=== PATIENT | female | born 1960 | race Hispanic/Latino ===

== ENCOUNTER 2017-04-01 15:08 | Emergency (ER) | payer MEDICARE ==
[2017-04-01 15:14] VITALS: BP 116/62; RESP 18; TEMP 97.9; O2SAT 99
[2017-04-01] MEDS ORDERED: Albuterol 0.083% Inhal Sol (2.5 mg/3 mL) UD INH STA (15:52)
--- NOTE | 2017-04-01 15:57 | ED PDOC ---
HPI: General Adult Time Seen by Provider: 04/01/17 15:19 Chief Complaint (Nursing): Cough, Cold, Congestion History Per: Patient Additional Complaint(s): Pt. states for the past 2 weeks she's had wheezing and cough productive of yellow sputum. States she's also been using her albuterol neb with good relief of wheezing but cough persists. Denies chest pain, hemoptysis, fever, sick contacts, recent travel. Also reports having nasal congestion. Past Medical History Reviewed: Historical Data, Nursing Documentation, Vital Signs Vital Signs: Last Vital Signs Temp 97.9 F 04/01/17 15:12 Pulse 111 H 04/01/17 15:12 Resp 18 04/01/17 15:12 BP 116/62 04/01/17 15:12 Pulse Ox 99 04/01/17 15:57 - Medical History PMH: Anxiety, Arthritis, Asthma, Back Problems, COPD, Emphysema, HTN, Hypercholesterolemia, Migraine Denies: HIV, Chronic Kidney Disease - Surgical History Surgical History: - Family History Family History: States: No Known Family Hx - Home Medications Home Medications: Ambulatory Orders Medication Instructions Recorded Metoclopramide HCl [Reglan] 10 mg PO TID PRN #12 tablet 01/12/16 Albuterol Sulfate [Proair Hfa] 1 puff INH PRN PRN 02/01/16 Benazepril HCl [Lotensin] 20 mg PO DAILY 02/01/16 Cyclobenzaprine [Flexeril] 10 mg PO BID 02/01/16 Ezetimibe [Zetia] 10 mg PO DAILY 02/01/16 Fluticasone Nasal [Flonase] 2 inh NA PRN PRN 02/01/16 Fluticasone/Salmeterol 250/50 2 puff INH PRN PRN 02/01/16 [Advair Diskus 250/50] Ibuprofen [Motrin Tab] 600 mg PO Q6 PRN 02/01/16 Levofloxacin [Levaquin] 500 mg PO DAILY #0 tablet 02/01/16 Methylprednisolone [Medrol Dose 4 mg PO DAILY #21 mg 02/01/16 Pack (21 tabs)] Ehfcr-6-Tutk Ethyl Esters [OMEGA 3] 500 mg PO DAILY 02/01/16 Omeprazole 20 mg PO DAILY 02/01/16 Promethazine HCl/Codeine 5 ml PO QID PRN 02/01/16 [Prometh-Codein 6.25-10 mg/5 ml] Simvastatin 20 mg PO DAILY 02/01/16 Zolpidem Tartrate [Ambien] 10 mg PO HS 02/01/16 amLODIPine [Norvasc] 10 mg PO DAILY 02/01/16 Albuterol HFA [Ventolin HFA 90 2 puff IH Q6 #200 puff 02/07/16 mcg/actuation (8 g)] predniSONE [predniSONE Tab] 20 mg PO BID #8 tab 02/07/16 Naproxen [Naprosyn] 500 mg PO BID PRN #15 tablet 03/01/16 Penicillin VK [Pen-Vee K] 500 mg PO QID #28 tab 03/01/16 Ondansetron [Zofran] 4 mg PO Q8H PRN #6 tab 05/01/16 Azithromycin [Zithromax] 250 mg PO DAILY #6 tab 04/01/17 Methylprednisolone [Medrol Dose 4 mg PO DAILY #21 mg 04/01/17 Pack (21 tabs)] - Allergies Allergies/Adverse Reactions: Allergies Allergy/AdvReac Type Severity Reaction Status Date / Time Sulfa (Sulfonamide Allergy RASH Verified 05/01/16 06:00 Antibiotics) Review of Systems ROS Statement: Except As Marked, All Systems Reviewed And Found Negative Respiratory: Positive for: Cough, Wheezing Physical Exam - Reviewed Nursing Documentation Reviewed: Yes Vital Signs Reviewed: Yes - Physical Exam Appears: Positive for: Well, Non-toxic, No Acute Distress Head Exam: Positive for: ATRAUMATIC, NORMAL INSPECTION, NORMOCEPHALIC Skin: Positive for: Normal Color, Warm. Negative for: Rash Eye Exam: Positive for: EOMI, Normal appearance, PERRL ENT: Positive for: Normal ENT Inspection Neck: Positive for: Normal, Painless ROM Cardiovascular/Chest: Positive for: Tachycardia. Negative for: Irregularly Irregular Respiratory: Positive for: Wheezing (b/l expiratory wheezing). Negative for: Respiratory Distress Gastrointestinal/Abdominal: Positive for: Normal Exam, Bowel Sounds, Soft. Negative for: Tenderness Back: Positive for: Normal Inspection Extremity: Positive for: Normal ROM Neurologic/Psych: Positive for: Alert, Oriented - ECG ECG: Positive for: Interpreted By Me ECG Rhythm: Positive for: Sinus Rhythm. Negative for: ST/T Changes Rate: 80 O2 Sat by Pulse Oximetry: 99 - Radiology X-Ray: Interpreted by Me (CXR) X-Ray Interpretation: No Acute Disease - Progress Re-evaluation Time: 17:02 (Lungs clear b/l. Reports complete relief of SOB. ) Condition: Improved Disposition - Clinical Impression Clinical Impression: Asthmatic bronchitis - Patient ED Disposition Is Patient to be Admitted: No - Disposition Referrals: [facility] [Outside] [facility] [Outside] Disposition: Routine/Home Disposition Time: 17:03 Condition: IMPROVED Prescriptions: Azithromycin [Zithromax] 250 mg PO DAILY #6 tab Methylprednisolone [Medrol Dose Pack (21 tabs)] 4 mg PO DAILY #21 mg Instructions: Acute Bronchitis (ED) Forms: [employer] (Chinese) Print Language: CZECH
[2017-04-01] MEDS ORDERED: Albuterol 0.083% Inhal Sol (2.5 mg/3 mL) UD ONE (16:16)
[2017-04-01 17:04] VITALS: PULSE 80
--- NOTE | 2017-04-01 17:15 | RAD ---
HISTORY: cough COMPARISON: Chest radiographs 05/01/2016. TECHNIQUE: Chest PA and lateral FINDINGS: LUNGS: No active pulmonary disease. PLEURA: No significant pleural effusion identified. No pneumothorax apparent. CARDIOVASCULAR: Normal. OSSEOUS STRUCTURES: No significant abnormalities. VISUALIZED UPPER ABDOMEN: Normal. OTHER FINDINGS: None. IMPRESSION: No interval acute cardiopulmonary disease appreciated.
--- NOTE | 2017-04-03 12:08 | CARD ---
APPROVED REPORT EKG Measurement Heart [id number] <Conclusion> Normal sinus rhythm Normal ECG
== END 2017-04-01 17:17 | disposition home or self-care (01) ==
LOC: H.ER 15:08
DX: J40 Bronchitis, not specified as acute or chronic (principal); E78.00 Pure hypercholesterolemia, unspecified; F41.9 Anxiety disorder, unspecified; I10 Essential (primary) hypertension; J44.9 Chronic obstructive pulmonary disease, unspecified

== ENCOUNTER 2017-06-27 19:08 | Emergency (ER) | payer MEDICARE ==
[2017-06-27 20:18] VITALS: BP 143/76; PULSE 81; RESP 18; TEMP 97.8; O2SAT 100
--- NOTE | 2017-06-27 23:40 | ED PDOC ---
HPI: General Adult Time Seen by Provider: 06/27/17 21:31 Chief Complaint (Nursing): Upper Extremity Problem/Injury History Per: Patient Additional Complaint(s): Pt. states earlier today she became dizzy which she describes as the room spinning. States symptoms have been occurring intermittently for 2 months and worsened over the past week. States today she was walking then she became dizzy and fell down injuring her R wrist/hand and the R lower back area. Further states that she did not injure her head nor did she lose consciousness. Denies neck pain, chest pain, abdominal pain, LOC, N/V, numbness, tingling. Past Medical History Reviewed: Historical Data, Nursing Documentation, Vital Signs Vital Signs: Last Vital Signs Temp 97.8 F 06/27/17 20:14 Pulse 81 06/27/17 20:14 Resp 18 06/27/17 20:14 BP 143/76 06/27/17 20:14 Pulse Ox 100 06/27/17 23:50 - Medical History PMH: Anxiety, Arthritis, Asthma, Back Problems, COPD, Emphysema, HTN, Hypercholesterolemia, Migraine Denies: HIV, Chronic Kidney Disease - Surgical History Surgical History: - Family History Family History: States: No Known Family Hx - Home Medications Home Medications: Ambulatory Orders Medication Instructions Recorded Metoclopramide HCl [Reglan] 10 mg PO TID PRN #12 tablet 01/12/16 Albuterol Sulfate [Proair Hfa] 1 puff INH PRN PRN 02/01/16 Benazepril HCl [Lotensin] 20 mg PO DAILY 02/01/16 Cyclobenzaprine [Flexeril] 10 mg PO BID 02/01/16 Ezetimibe [Zetia] 10 mg PO DAILY 02/01/16 Fluticasone Nasal [Flonase] 2 inh NA PRN PRN 02/01/16 Fluticasone/Salmeterol 250/50 2 puff INH PRN PRN 02/01/16 [Advair Diskus 250/50] Ibuprofen [Motrin Tab] 600 mg PO Q6 PRN 02/01/16 Levofloxacin [Levaquin] 500 mg PO DAILY #0 tablet 02/01/16 Methylprednisolone [Medrol Dose 4 mg PO DAILY #21 mg 02/01/16 Pack (21 tabs)] Rvqey-9-Qbmh Ethyl Esters [OMEGA 3] 500 mg PO DAILY 02/01/16 Omeprazole 20 mg PO DAILY 02/01/16 Promethazine HCl/Codeine 5 ml PO QID PRN 02/01/16 [Prometh-Codein 6.25-10 mg/5 ml] Simvastatin 20 mg PO DAILY 02/01/16 Zolpidem Tartrate [Ambien] 10 mg PO HS 02/01/16 amLODIPine [Norvasc] 10 mg PO DAILY 02/01/16 Albuterol HFA [Ventolin HFA 90 2 puff IH Q6 #200 puff 02/07/16 mcg/actuation (8 g)] predniSONE [predniSONE Tab] 20 mg PO BID #8 tab 02/07/16 Naproxen [Naprosyn] 500 mg PO BID PRN #15 tablet 03/01/16 Penicillin VK [Pen-Vee K] 500 mg PO QID #28 tab 03/01/16 Ondansetron [Zofran] 4 mg PO Q8H PRN #6 tab 05/01/16 Azithromycin [Zithromax] 250 mg PO DAILY #6 tab 04/01/17 Methylprednisolone [Medrol Dose 4 mg PO DAILY #21 mg 04/01/17 Pack (21 tabs)] Promethazine DM [Phenergan DM 5 - 10 ml PO Q8 PRN #120 ml 04/01/17 Syrup] - Allergies Allergies/Adverse Reactions: Allergies Allergy/AdvReac Type Severity Reaction Status Date / Time Sulfa (Sulfonamide Allergy RASH Verified 06/27/17 20:14 Antibiotics) Review of Systems ROS Statement: Except As Marked, All Systems Reviewed And Found Negative Musculoskeletal: Positive for: Back Pain, Hand Pain Physical Exam - Physical Exam Appears: Positive for: Well, Non-toxic, No Acute Distress Head Exam: Positive for: ATRAUMATIC, NORMAL INSPECTION, NORMOCEPHALIC Skin: Positive for: Normal Color, Warm. Negative for: Rash Eye Exam: Positive for: Normal appearance, EOMI. Negative for: Nystagmus ENT: Positive for: Normal ENT Inspection Neck: Positive for: Normal, Painless ROM Cardiovascular/Chest: Positive for: Regular Rate, Rhythm, Chest Non Tender Respiratory: Positive for: Normal Breath Sounds. Negative for: Respiratory Distress Gastrointestinal/Abdominal: Positive for: Normal Exam, Soft, Tenderness (RLQ tenderness ) Back: Negative for: Normal Inspection (R lower flank area with large ecchymotic area with moderate tenderness and no break in skin integrity), L CVA Tenderness, R CVA Tenderness, Vertebral Tenderness Extremity: Positive for: Other (R dorsal hand and R dorsal wrist tenderness without swelling or deformity) Neurologic/Psych: Positive for: Alert, Oriented. Negative for: Aphasia, Facial Droop - Laboratory Results Result Diagrams: 06/27/17 23:38 06/27/17 23:38 - ECG O2 Sat by Pulse Oximetry: 100 - Radiology X-Ray: Interpreted by Me (R hand/wrist x-ray) X-Ray Interpretation: No Acute Disease - Progress ED Course And Treament: Labs ordered. CT abd/pelvis w/ IV contrast, R wrist/hand x-rays ordered. Dilaudid 0.5mg IV, zofran 4mg IV ordered. Pt. kept NPO. Disposition - Clinical Impression Clinical Impression: Dizziness, Wrist sprain, Back contusion - Patient ED Disposition Is Patient to be Admitted: Transfer of Care (Signed out to Raza RAMOS pending CT results and final disposition.) - Disposition Disposition: Routine/Home Disposition Time: 01:15 Condition: STABLE Forms: [employer] (Romanian)
[2017-06-27 23:42] LABS: BASO # 0.1 K/uL (0.0-0.2); BASO % 0.8 % (0.0-2.0); EOS # 0.4 K/uL (0.0-0.7); EOS % 4.3 % (0.0-4.0); HEMOGLOBIN 12.4 g/dL (12.0-16.0); LYMPH # 3.3 K/uL (1.0-4.3); LYMPH % 34.5 % (20.0-40.0); MEAN CELL VOLUME 96.8 fl (81.0-99.0); MEAN CORPUSCULAR HEMOGLOBIN 31.6 pg (27.0-31.0); MEAN CORPUSCULAR HGB CONC 32.6 g/dL (33.0-37.0); MEAN PLATELET VOLUME 9.7 fl (7.2-11.7); MONO # 0.8 K/uL (0.0-0.8); MONO % 8.1 % (0.0-10.0); NEUT % 52.3 % (50.0-75.0); RBC 3.91 Mil/uL (3.80-5.20); RED CELL DISTRIBUTION WIDTH 14.7 % (11.5-14.5); WHITE BLOOD COUNT 9.6 K/uL (4.8-10.8)
[2017-06-27 23:53] LABS: ALB/GLOB RATIO 1.2 (1.0-2.1); ALBUMIN 4.5 g/dL (3.5-5.0); ALT/SGPT 35 U/L (9-52); AST/SGOT 32 U/L (14-36); BLOOD UREA NITROGEN 12 mg/dl (7-17); CALCIUM 9.5 mg/dL (8.4-10.2); GFR AFRICAN-AMERICAN > 60; GFR NON-AFRICAN AMERICAN 51
[2017-06-28 00:30] LABS: PARTIAL THROMBOPLASTIN TIME 30.1 Seconds (25.6-37.1); PROTHROMBIN TIME 10.9 Seconds (9.8-13.1)
[2017-06-28] MEDS ORDERED: Sodium Chloride 0.9% 50 ML IV ONE (00:48)
[2017-06-28] MEDS ORDERED: Iohexol 300 100 ML IJ ONE (00:48)
--- NOTE | 2017-06-28 02:14 | CT ---
EXAM: CT Abdomen and Pelvis With Intravenous Contrast EXAM DATE/TIME: 06/27/2017 10:03 PM CLINICAL HISTORY: 56 years old, female; Injury or trauma; Fall; Initial encounter; Blunt; Generalized; Prior surgery; Surgery date: 6+ months; Surgery type: ; Additional info: Trauma. Back pain TECHNIQUE: Axial computed tomography images of the abdomen and pelvis with intravenous contrast. All CT scans at this facility use one or more dose reduction techniques, viz.: automated exposure control; ma/kV adjustment per patient size (including targeted exams where dose is matched to indication; i.e. head); or iterative reconstruction technique. Coronal and sagittal reformatted images were created and reviewed. CONTRAST: 90 mL of [id number] administered intravenously. COMPARISON: No relevant prior studies available. FINDINGS: There are no abnormal areas of decreased attenuation in the liver, spleen, pancreas or kidneys to suggest organ injury. No free fluid. No evidence of bowel injury.No free air. A normal appendix is identified coronal images 66 through 76. No fractures. Chronic appearing deformity of the L1 superior endplate with adjacent well corticated fragment. The uterus and ovaries appear normal. IMPRESSION: No acute findings.
--- NOTE | 2017-06-28 02:20 | CT ---
EXAM: CT Head Without Intravenous Contrast EXAM DATE/TIME: 06/27/2017 10:02 PM CLINICAL HISTORY: 56 years old, female; Injury or trauma; Fall TECHNIQUE: Axial computed tomography images of the head/brain without intravenous contrast. All CT scans at this facility use one or more dose reduction techniques, viz.: automated exposure control; ma/kV adjustment per patient size (including targeted exams where dose is matched to indication; i.e. head); or iterative reconstruction technique. COMPARISON: CT - HEAD W/O CONTRAST 2015-08-26 20:10 images did not arrive FINDINGS: Mild atrophy. No intracranial hemorrhage. No extra axial collections. No intracranial edema. No fluid in the sinuses. Trace fluid inferior right mastoid air cells. No depressed fractures. IMPRESSION: No acute intracranial injury.
--- NOTE | 2017-06-28 04:02 | ED PDOC ---
- Laboratory Results Result Diagrams: 06/27/17 23:38 06/27/17 23:38 - ECG O2 Sat by Pulse Oximetry: 100 Medical Decision Making Medical Decision Makin Patient endorsed to me from RACHEL Rae pending CT. 021 CT A/P : FINDINGS There are no abnormal areas of decreased attenuation in the liver, spleen, pancreas or kidneys to suggest organ injury. No free fluid. No evidence of bowel injury.No free air. A normal appendix is identified coronal images 66 through 76. No fractures. Chronic appearing deformity of the L1 superior endplate with adjacent well corticated fragment. The uterus and ovaries appear normal. IMPRESSION: No acute findings. CT HEAD : FINDINGS: Mild atrophy. No intracranial hemorrhage. No extra axial collections. No intracranial edema. No fluid in the sinuses. Trace fluid inferior right mastoid air cells. No depressed fractures. IMPRESSION: No acute intracranial injury. On re-evaluation, patient reports improvement of pain, denies any headache, dizziness, chest pain, SOB or abdominal pain at this time. On exam, patient remains AAOx3, in no acute distress. Discussed CT findings with patient in great detail. Pre-made thumb spica splint applied to the R wrist. Based on history, exam and diagnostic results plan will be for outpt f/u w/ Dx of fall, flank pain, right wrist pain. Advised to follow up with primary care physician in 1-2 days without fail. Return to the emergency room at any time for any new or worsening symptoms. Patient states she fully agrees with and understands discharge instructions. States that she agrees with the plan and disposition. Verbalized and repeated discharge instructions and plan. I have given the patient opportunity to ask any additional questions. Scribe Attestation: Documented by Letty Zepeda acting as a scribe for Maggie Person PA-C. Scribe Attestation: All medical record entries made by the Scribe were at my direction and personally dictated by me. I have reviewed the chart and agree that the record accurately reflects my personal performance of the history, physical exam, medical decision making, and the department course for this patient. I have also personally directed, reviewed, and agree with the discharge instructions and disposition. Disposition Counseled Patient/Family Regarding: Studies Performed, Diagnosis, Need For Followup - Clinical Impression Clinical Impression: Dizziness, Wrist sprain, Back contusion - POA Present On Arrival: None - Disposition Disposition: Routine/Home Disposition Time: 02:20 Condition: STABLE Additional Instructions: Thank you for letting us take care of you today. You were treated for dizziness , back contusion, wrist sprain. The emergency medical care you received today was directed at your acute symptoms. If you were prescribed any medication, please fill it and take as directed. It may take several days for your symptoms to resolve. Return to the Emergency Department if your symptoms worsen, do not improve, or if you have any other problems. Please contact your doctor in 2 days for re-evaluation and follow up. Bring any paperwork you were given at discharge with you along with any medications you are taking to your follow up visit. Our treatment cannot replace ongoing medical care by a primary care provider (PCP) outside of the emergency department. Thank you for allowing the [facility] team to be part of your care today. 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
--- NOTE | 2017-06-28 10:36 | RAD ---
PROCEDURE: Right Hand Radiographs. HISTORY: trauma COMPARISON: Right hand radiographs dated 03/24/2015 . FINDINGS: BONES: No acute fracture. JOINTS: Unremarkable. SOFT TISSUES: Normal. OTHER FINDINGS: None. IMPRESSION: No demonstrated fracture or dislocation
--- NOTE | 2017-06-28 10:36 | RAD ---
PROCEDURE: Right Wrist Radiographs. HISTORY: trauma COMPARISON: None. FINDINGS: BONES: No acute fracture. JOINTS: Unremarkable. SOFT TISSUES: Normal. OTHER FINDINGS: None. IMPRESSION: No demonstrated fracture or dislocation.
--- NOTE | 2017-06-28 11:31 | CARD ---
APPROVED REPORT EKG Measurement Heart [id number] <Conclusion> Normal sinus rhythm Normal ECG
== END 2017-06-28 04:30 | disposition home or self-care (01) ==
LOC: H.ER 19:08
DX: S63.91XA Sprain of unspecified part of right wrist and hand, initial encounter (principal); S30.0XXA Contusion of lower back and pelvis, initial encounter; R42 Dizziness and giddiness; E78.00 Pure hypercholesterolemia, unspecified; F41.9 Anxiety disorder, unspecified; I10 Essential (primary) hypertension; J44.9 Chronic obstructive pulmonary disease, unspecified
CPT/HCPCS: 70450; 73110; 73130; 74177; 80053; 84484; 85025; 85610; 85730; 93005; 96374; 96375; 96376; 99282; J1170; J2405; Q9967

== ENCOUNTER 2017-07-09 11:47 | Emergency (ER) | payer MEDICARE ==
[2017-07-09 11:58] VITALS: O2SAT 99
[2017-07-09] MEDS ORDERED: Albuterol-Ipratrop 3 mg / 0.5 (3 ml) UD ONE ×2 (11:59→12:43)
--- NOTE | 2017-07-09 12:06 | ED PDOC ---
HPI: CCC, URI, Sore Throat Time Seen by Provider: 07/09/17 12:03 Chief Complaint (Provider): shortness of breath History Per: Patient History/Exam Limitations: no limitations Onset/Duration Of Symptoms: Days (x2) Current Symptoms Are (Timing): Still Present Additional Complaint(s): 57 year old female with medical history of emphysema and Crohn's disease, presents to the emergency department via EMS for an evaluation of cough and shortness of breath ongoing for 2 days. Patient attempted to see PMD yesterday but was informed he was out of the office. Past Medical History Reviewed: Historical Data, Nursing Documentation, Vital Signs Vital Signs: Last Vital Signs Temp 97.9 F 07/09/17 15:09 Pulse 75 07/09/17 15:09 Resp 16 07/09/17 15:09 BP 135/80 07/09/17 15:09 Pulse Ox 99 07/09/17 15:09 - Medical History PMH: Anxiety, Arthritis, Asthma, Back Problems, COPD, Emphysema, HTN, Hypercholesterolemia, Migraine Denies: HIV, Chronic Kidney Disease - Surgical History Surgical History: Denies: No Surg Hx - Family History Family History: States: Unknown Family Hx - Social History Current smoker - smoking cessation education provided: No Ex-Smoker (has not smoked in the last 12 months): Yes Alcohol: None Drugs: Denies - Home Medications Home Medications: Ambulatory Orders Medication Instructions Recorded Metoclopramide HCl [Reglan] 10 mg PO TID PRN #12 tablet 01/12/16 Albuterol Sulfate [Proair Hfa] 1 puff INH PRN PRN 02/01/16 Benazepril HCl [Lotensin] 20 mg PO DAILY 02/01/16 Cyclobenzaprine [Flexeril] 10 mg PO BID 02/01/16 Ezetimibe [Zetia] 10 mg PO DAILY 02/01/16 Fluticasone Nasal [Flonase] 2 inh NA PRN PRN 02/01/16 Fluticasone/Salmeterol 250/50 2 puff INH PRN PRN 02/01/16 [Advair Diskus 250/50] Ibuprofen [Motrin Tab] 600 mg PO Q6 PRN 02/01/16 Levofloxacin [Levaquin] 500 mg PO DAILY #0 tablet 02/01/16 Methylprednisolone [Medrol Dose 4 mg PO DAILY #21 mg 02/01/16 Pack (21 tabs)] Xoxmd-2-Wzik Ethyl Esters [OMEGA 3] 500 mg PO DAILY 02/01/16 Omeprazole 20 mg PO DAILY 02/01/16 Promethazine HCl/Codeine 5 ml PO QID PRN 02/01/16 [Prometh-Codein 6.25-10 mg/5 ml] Simvastatin 20 mg PO DAILY 02/01/16 Zolpidem Tartrate [Ambien] 10 mg PO HS 02/01/16 amLODIPine [Norvasc] 10 mg PO DAILY 02/01/16 Albuterol HFA [Ventolin HFA 90 2 puff IH Q6 #200 puff 02/07/16 mcg/actuation (8 g)] predniSONE [predniSONE Tab] 20 mg PO BID #8 tab 02/07/16 Naproxen [Naprosyn] 500 mg PO BID PRN #15 tablet 03/01/16 Penicillin VK [Pen-Vee K] 500 mg PO QID #28 tab 03/01/16 Ondansetron [Zofran] 4 mg PO Q8H PRN #6 tab 05/01/16 Azithromycin [Zithromax] 250 mg PO DAILY #6 tab 04/01/17 Methylprednisolone [Medrol Dose 4 mg PO DAILY #21 mg 04/01/17 Pack (21 tabs)] Promethazine DM [Phenergan DM 5 - 10 ml PO Q8 PRN #120 ml 04/01/17 Syrup] Albuterol HFA [Ventolin HFA 90 1 - 2 puff IH Q4H PRN #1 bottle 07/09/17 mcg/actuation (8 g)] Azithromycin [Zithromax] 250 mg PO DAILY #6 tab 07/09/17 Oseltamivir [Tamiflu] 75 mg PO BID #10 cap 07/09/17 predniSONE [Prednisone] 40 mg PO DAILY #8 tab 07/09/17 - Allergies Allergies/Adverse Reactions: Allergies Allergy/AdvReac Type Severity Reaction Status Date / Time Sulfa (Sulfonamide Allergy RASH Verified 06/27/17 20:14 Antibiotics) Review of Systems ROS Statement: Except As Marked, All Systems Reviewed And Found Negative Respiratory: Positive for: Cough, Shortness of Breath Physical Exam - Reviewed Nursing Documentation Reviewed: Yes Vital Signs Reviewed: Yes - Physical Exam Appears: Positive for: Non-toxic, In Acute Distress Skin: Positive for: Normal Color, Warm, Dry Neck: Positive for: Normal Cardiovascular/Chest: Positive for: Regular Rate, Rhythm Respiratory: Positive for: Decreased Breath Sounds, Wheezing (bilaterally), Respiratory Distress (mild). Negative for: Normal Breath Sounds Gastrointestinal/Abdominal: Positive for: Normal Exam Extremity: Positive for: Normal ROM Neurologic/Psych: Positive for: Alert, Oriented - Laboratory Results Result Diagrams: 07/09/17 12:15 07/09/17 12:15 - ECG O2 Sat by Pulse Oximetry: 99 (RA) Pulse Ox Interpretation: Normal Medical Decision Making Medical Decision Making: Initial Impression: Cough rule out copd vs pneumonia Differential Diagnosis: COPD exacerbation Initial Plan: * CMP * CBC * CXR * Duoneb 3ml INH * Solu-medrol 125mg IVP 12:38 CXR FINDINGS: LUNGS: No active pulmonary disease. PLEURA: No significant pleural effusion identified. No pneumothorax apparent. CARDIOVASCULAR: Normal. OSSEOUS STRUCTURES: Unchanged. VISUALIZED UPPER ABDOMEN: Normal. OTHER FINDINGS: None. IMPRESSION: No active disease. pt reevaluated after medications, pt feels better. breathing improved. wheezing resolved. pt vitals improved. stable for dc. recommended oupt follow up in clinic. Scribe Attestation: Documented by Elisha Arriola, acting as a scribe for Tam Laureano MD Provider Scribe Attestation: All medical record entries made by the Scribe were at my direction and personally dictated by me. I have reviewed the chart and agree that the record accurately reflects my personal performance of the history, physical exam, medical decision making, and the department course for this patient. I have also personally directed, reviewed, and agree with the discharge instructions and disposition. Disposition - Clinical Impression Clinical Impression: COPD exacerbation - Patient ED Disposition Is Patient to be Admitted: No Counseled Patient/Family Regarding: Studies Performed, Diagnosis, Need For Followup - Disposition Referrals: [facility] [Outside] [facility] [Outside] Disposition: Routine/Home Disposition Time: 14:45 Condition: IMPROVED Additional Instructions: follow up with your primary doctor/clinic in 1-2 days return to ED with any worsening or concerning symptoms Prescriptions: Albuterol HFA [Ventolin HFA 90 mcg/actuation (8 g)] 1 - 2 puff IH Q4H PRN #1 bottle PRN Reason: Wheezing Azithromycin [Zithromax] 250 mg PO DAILY #6 tab Oseltamivir [Tamiflu] 75 mg PO BID #10 cap predniSONE [Prednisone] 40 mg PO DAILY #8 tab Instructions: Chronic Obstructive Pulmonary Disease (COPD), Including Emphysema Forms: [employer] (Maori)
[2017-07-09] MEDS: Albuterol-Ipratrop 3 mg / 0.5 (3 ml) UD INH STA ×2 (12:07→12:51)
[2017-07-09 12:35] LABS: BASO # 0.1 K/uL (0.0-0.2); BASO % 0.6 % (0.0-2.0); EOS # 0.4 K/uL (0.0-0.7); EOS % 5.2 % (0.0-4.0); LYMPH # 3.5 K/uL (1.0-4.3); LYMPH % 41.4 % (20.0-40.0); MEAN CELL VOLUME 96.1 fl (81.0-99.0); MEAN CORPUSCULAR HEMOGLOBIN 32.1 pg (27.0-31.0); MEAN CORPUSCULAR HGB CONC 33.4 g/dL (33.0-37.0); MEAN PLATELET VOLUME 9.1 fl (7.2-11.7); MONO # 0.8 K/uL (0.0-0.8); MONO % 9.8 % (0.0-10.0); NEUT # 3.6 K/uL (1.8-7.0); NRBC % 0.1 % (0.0-0.0); RBC 4.04 Mil/uL (3.80-5.20); RED CELL DISTRIBUTION WIDTH 14.3 % (11.5-14.5); WHITE BLOOD COUNT 8.4 K/uL (4.8-10.8)
--- NOTE | 2017-07-09 12:40 | RAD ---
HISTORY: short of breath COMPARISON: Chest radiograph dated 04/01/2017 TECHNIQUE: Chest PA and lateral FINDINGS: LUNGS: No active pulmonary disease. PLEURA: No significant pleural effusion identified. No pneumothorax apparent. CARDIOVASCULAR: Normal. OSSEOUS STRUCTURES: Unchanged. VISUALIZED UPPER ABDOMEN: Normal. OTHER FINDINGS: None. IMPRESSION: No active disease.
[2017-07-09 12:41] LABS: ALB/GLOB RATIO 1.1 (1.0-2.1); ALBUMIN 4.3 g/dL (3.5-5.0); ALT/SGPT 20 U/L (9-52); AST/SGOT 25 U/L (14-36); BLOOD UREA NITROGEN 15 mg/dl (7-17); CALCIUM 9.6 mg/dL (8.4-10.2); GFR AFRICAN-AMERICAN > 60; GFR NON-AFRICAN AMERICAN > 60
[2017-07-09 15:10] VITALS: BP 135/80; PULSE 75; RESP 16; TEMP 97.9
== END 2017-07-09 15:10 | disposition home or self-care (01) ==
LOC: H.ER 11:47
DX: J44.1 Chronic obstructive pulmonary disease with (acute) exacerbation (principal); J43.9 Emphysema, unspecified; E78.00 Pure hypercholesterolemia, unspecified; F41.9 Anxiety disorder, unspecified; I10 Essential (primary) hypertension; K50.90 Crohn's disease, unspecified, without complications
CPT/HCPCS: 71046; 80053; 85025; 87804; 94640; 96374; 99283; J1885; J2930

== ENCOUNTER 2017-09-11 15:28 | Emergency (ER) | payer MEDICARE ==
[2017-09-11 17:19] LABS: BASO # 0.1 K/uL (0.0-0.2); BASO % 0.7 % (0.0-2.0); EOS # 0.3 K/uL (0.0-0.7); EOS % 4.2 % (0.0-4.0); HEMOGLOBIN 12.3 g/dL (12.0-16.0); LYMPH # 2.3 K/uL (1.0-4.3); LYMPH % 31.8 % (20.0-40.0); MEAN CELL VOLUME 98.2 fl (81.0-99.0); MEAN CORPUSCULAR HEMOGLOBIN 34.2 pg (27.0-31.0); MEAN CORPUSCULAR HGB CONC 34.8 g/dL (33.0-37.0); MONO # 0.9 K/uL (0.0-0.8); NEUT # 3.8 K/uL (1.8-7.0); NEUT % 51.3 % (50.0-75.0); RBC 3.58 Mil/uL (3.80-5.20); RED CELL DISTRIBUTION WIDTH 13.6 % (11.5-14.5); WHITE BLOOD COUNT 7.4 K/uL (4.8-10.8)
[2017-09-11 17:26] LABS: ALB/GLOB RATIO 1.1 (1.0-2.1); CALCIUM 8.9 mg/dL (8.4-10.2); PARTIAL THROMBOPLASTIN TIME 29.7 Seconds (25.6-37.1); PROTHROMBIN TIME 10.8 Seconds (9.8-13.1)
--- NOTE | 2017-09-11 17:32 | ED PDOC ---
Lower Extremity Pain/Injury Time Seen by Provider: 09/11/17 16:27 Chief Complaint (Nursing): Lower Extremity Problem/Injury Chief Complaint (Provider): Rash History Per: Patient History/Exam Limitations: no limitations Additional Complaint(s): Pt reports swelling and redness to both lower legs X 2 days, no h/o trauma, no paresthesias or weakness. Pt also c/o back pain which is chronic. Denies fever , incontinence, urinary symptoms. Past Medical History Reviewed: Nursing Documentation, Vital Signs Vital Signs: Last Vital Signs Temp 98.3 F 09/11/17 16:07 Pulse 88 09/11/17 16:07 Resp 20 09/11/17 16:07 BP 97/50 L 09/11/17 16:07 Pulse Ox 98 09/11/17 16:07 - Medical History PMH: Anxiety, Arthritis, Asthma, Back Problems, COPD, Emphysema, HTN, Hypercholesterolemia, Migraine - Surgical History Surgical History: - Family History Family History: States: Unknown Family Hx - Social History Current smoker - smoking cessation education provided: No Alcohol: None - Home Medications Home Medications: Ambulatory Orders Medication Instructions Recorded Benazepril HCl [Lotensin] 20 mg PO DAILY 02/01/16 Cyclobenzaprine [Flexeril] 10 mg PO BID 02/01/16 Ezetimibe [Zetia] 10 mg PO DAILY 02/01/16 Fluticasone Nasal [Flonase] 2 inh NA PRN PRN 02/01/16 Fluticasone/Salmeterol 250/50 2 puff INH PRN PRN 02/01/16 [Advair Diskus 250/50] [id number] Ethyl Esters [OMEGA 3] 500 mg PO DAILY 02/01/16 Omeprazole 20 mg PO DAILY 02/01/16 Simvastatin 20 mg PO DAILY 02/01/16 Zolpidem Tartrate [Ambien] 10 mg PO HS 02/01/16 amLODIPine [Norvasc] 10 mg PO DAILY 02/01/16 Albuterol HFA [Ventolin HFA 90 1 - 2 puff IH Q4H PRN #1 bottle 07/09/17 mcg/actuation (8 g)] Cephalexin [cephalexin] 500 mg PO QID #27 cap 09/11/17 Naproxen [Naprosyn] 500 mg PO BID PRN #15 tablet 09/11/17 - Allergies Allergies/Adverse Reactions: Allergies Allergy/AdvReac Type Severity Reaction Status Date / Time Sulfa (Sulfonamide Allergy RASH Verified 06/27/17 20:14 Antibiotics) Wells Criteria for PE - Wells Criteria for Pulmonary Embolism Clinical Signs and Symptoms of DVT: No P.E is #1 Diagnosis, or Equally Likely: No Heart Rate >100: No Immobilization at least 3 days;Surgery previous 4 weeks: No Previous, objectively diagnosed PE or DVT: No Hemoptysis: No Malignancy w/treatment within 6 months, or palliative: No Total Score: 0 Review of Systems Constitutional: Negative for: Fever, Chills Cardiovascular: Negative for: Chest Pain, Palpitations Respiratory: Negative for: Cough, Shortness of Breath Gastrointestinal: Negative for: Nausea, Vomiting, Abdominal Pain, Diarrhea Genitourinary Female: Negative for: Dysuria, Hematuria Musculoskeletal: Positive for: Back Pain Skin: Positive for: Rash. Negative for: Lesions Neurological: Negative for: Weakness, Numbness, Headache Physical Exam - Reviewed Nursing Documentation Reviewed: Yes Vital Signs Reviewed: Yes - Physical Exam Appears: Positive for: Well, No Acute Distress Skin: Positive for: Normal Color, Warm, Dry Eye Exam: Positive for: Normal appearance, EOMI, PERRL Cardiovascular/Chest: Positive for: Regular Rate, Rhythm Respiratory: Positive for: Normal Breath Sounds Back: Positive for: Normal Inspection, Other (TTP lower back, R paraspinal) Extremity: Positive for: Tenderness, Pedal Edema, Capillary Refill (<2 sec), Swelling, Other (Minimal erythema frontal anterior LE, blanching, no induration , no crepitus). Negative for: Calf Tenderness, Deformity Neurologic/Psych: Positive for: Alert, Oriented. Negative for: Motor/Sensory Deficits - Laboratory Results Result Diagrams: 09/11/17 17:13 09/11/17 17:13 - ECG O2 Sat by Pulse Oximetry: 98 Medical Decision Making Medical Decision Makin yo female with BLE rash and swelling and chronic back pain. - labs - Doppler ultrasound 1857 Extremity US FINDINGS: COMMON FEMORAL VEIN: Right CFV: Unremarkable. Left CFV: Unremarkable. SUPERFICIAL FEMORAL VEIN: Right SFV: Unremarkable. Left SFV: Unremarkable. POPLITEAL VEIN: Right Popliteal: Unremarkable. Left Popliteal: Unremarkable. POSTERIOR TIBIAL VEIN: Right PTV: Unremarkable. Left PTV: Unremarkable. OTHER FINDINGS: None. IMPRESSION: No evidence of deep venous thrombosis. Disposition - Clinical Impression Clinical Impression: Bilateral lower leg cellulitis - Disposition Referrals: [facility] [Outside] Jeremy Weinberg MD [Family Provider] - Disposition: Routine/Home Disposition Time: 19:56 Condition: STABLE Prescriptions: Cephalexin [cephalexin] 500 mg PO QID #27 cap Naproxen [Naprosyn] 500 mg PO BID PRN #15 tablet PRN Reason: Pain, Moderate (4-7) Instructions: Cellulitis (Skin Infection), Adult (DC) Forms: [employer] (Japanese)
[2017-09-11 17:47] LABS: GRANULAR CAST 8 /lpf (0-1); SQUAMOUS EPITHIAL < 1 /hpf (0-5); URINE BILIRUBIN NEGATIVE (NEGATIVE); URINE BLOOD NEGATIVE (NEGATIVE); URINE CLARITY SLIGHTY-CLOUDY (Clear); URINE COLOR YELLOW (YELLOW); URINE GLUCOSE (UA) NEG (Normal); URINE LEUKOCYTE ESTERASE NEG Leu/uL (Negative); URINE PROTEIN NEGATIVE (NEGATIVE); URINE UROBILINOGEN 0.2-1.0 mg/dL (0.2-1.0)
--- NOTE | 2017-09-11 18:58 | US ---
PROCEDURE: Bilateral lower extremity venous duplex Doppler. HISTORY: Swelling COMPARISON: None available. TECHNIQUE: Bilateral common femoral, superficial femoral, popliteal and posterior tibial veins were evaluated. Flow was assessed with color Doppler, compressibility, assessment of phasic flow and augmentation response. FINDINGS: COMMON FEMORAL VEIN: Right CFV: Unremarkable. Left CFV: Unremarkable. SUPERFICIAL FEMORAL VEIN: Right SFV: Unremarkable. Left SFV: Unremarkable. POPLITEAL VEIN: Right Popliteal: Unremarkable. Left Popliteal: Unremarkable. POSTERIOR TIBIAL VEIN: Right PTV: Unremarkable. Left PTV: Unremarkable. OTHER FINDINGS: None. IMPRESSION: No evidence of deep venous thrombosis.
[2017-09-11 20:58] VITALS: RESP 18
[2017-09-11 21:09] VITALS: BP 136/81; PULSE 82; TEMP 98.2
[2017-09-17 11:49] VITALS: O2SAT 98
== END 2017-09-11 20:35 | disposition home or self-care (01) ==
LOC: H.ER 15:28
DX: R21 Rash and other nonspecific skin eruption (principal); L03.116 Cellulitis of left lower limb; L03.115 Cellulitis of right lower limb; I10 Essential (primary) hypertension; J44.9 Chronic obstructive pulmonary disease, unspecified; J43.9 Emphysema, unspecified
CPT/HCPCS: 80053; 81003; 85025; 85610; 85730; 93970; 96374; 99283; J1885

== ENCOUNTER 2017-11-20 08:45 | Inpatient (IN) | payer MEDICARE ==
[2017-11-20] MEDS ORDERED: Albuterol-Ipratrop 3 mg / 0.5 (3 ml) UD IH STA ×2 (08:57→10:03)
[2017-11-20] MEDS ORDERED: Sodium Bicarbonate 7.5% (0.9 MEQ/ML) 50ML INJ IV ONE ×3 (09:00→10:35)
[2017-11-20] MEDS ORDERED: Sodium Chloride 0.9% 1,000 ML IV SCH ×2 (09:00→14:15)
[2017-11-20 09:01] VITALS: BMI 27.5
[2017-11-20] MEDS ORDERED: Sodium Chloride 0.9% 1,000 ML IV STA ×2 (09:01→10:50)
--- NOTE | 2017-11-20 09:02 | ED PDOC ---
HPI: SOB/CHF/COPD Time Seen by Provider: 11/20/17 08:54 Chief Complaint (Nursing): Respiratory Distress Chief Complaint (Provider): Respiratory Distress History Per: EMS, Family History/Exam Limitations: clinical condition Onset/Duration Of Symptoms: Days (3) Additional Complaint(s): Per family, pt. was having vomiting for 3 days. Did not go anywhere to get seen. Today had difficulty breathing so EMS called. Medics saw pt. was in severe respiratory distress so 0.3 epi given, duoneb x3, 2gm mag, 125 mg solumedrol, 50mg benadryl, and 500 cc of NS. Pt. then got ketamine 80mg for intubation as she was not responsive to the treatment. 7.5 ETT used. After intubation, vomiting from the side of the mouth noted that is black in color. Per family, pt. is noncompliant with her meds, has COPD. No heart problems or diabetes. PCP Dr. Weinberg. Past Medical History Reviewed: Nursing Documentation, Vital Signs Vital Signs: Last Vital Signs Temp 97.9 F 11/20/17 09:48 Pulse 84 11/20/17 13:42 Resp 14 11/20/17 13:42 BP 106/96 H 11/20/17 13:42 Pulse Ox 94 L 11/20/17 13:04 - Medical History PMH: Anxiety, Arthritis (OA), Asthma, Back Problems, COPD (Emphysema), Emphysema , HTN, Hypercholesterolemia, Migraine Denies: HIV, Chronic Kidney Disease - Surgical History Surgical History: - Family History Family History: States: Unknown Family Hx - Living Arrangements Living Arrangements: With Family - Home Medications Home Medications: Ambulatory Orders Medication Instructions Recorded Benazepril HCl [Lotensin] 20 mg PO DAILY 02/01/16 Cyclobenzaprine [Flexeril] 10 mg PO BID 02/01/16 Ezetimibe [Zetia] 10 mg PO DAILY 02/01/16 Fluticasone Nasal [Flonase] 2 inh NA PRN PRN 02/01/16 Fluticasone/Salmeterol 250/50 2 puff INH PRN PRN 02/01/16 [Advair Diskus 250/50] [id number] Ethyl Esters [OMEGA 3] 500 mg PO DAILY 02/01/16 Omeprazole 20 mg PO DAILY 02/01/16 Simvastatin 20 mg PO DAILY 02/01/16 Zolpidem Tartrate [Ambien] 10 mg PO HS 02/01/16 amLODIPine [Norvasc] 10 mg PO DAILY 02/01/16 Albuterol HFA [Ventolin HFA 90 1 - 2 puff IH Q4H PRN #1 bottle 07/09/17 mcg/actuation (8 g)] Cephalexin [cephalexin] 500 mg PO QID #27 cap 09/11/17 Naproxen [Naprosyn] 500 mg PO BID PRN #15 tablet 09/11/17 Alprazolam [Xanax Xr] 1 mg PO DAILY 10/22/17 Gabapentin [Neurontin] 100 mg PO DAILY 10/22/17 - Allergies Allergies/Adverse Reactions: Allergies Allergy/AdvReac Type Severity Reaction Status Date / Time Sulfa (Sulfonamide Allergy RASH Verified 06/27/17 20:14 Antibiotics) Review of Systems Review Of Systems: ROS cannot be obtained secondary to pt's inabilty to answer questions. Physical Exam - Reviewed Nursing Documentation Reviewed: Yes Vital Signs Reviewed: Yes - Physical Exam Appears: Positive for: In Acute Distress Head Exam: Positive for: ATRAUMATIC Skin: Positive for: Normal Color Eye Exam: Positive for: Other (pupils 3+ b/l and nonreactive) ENT: Positive for: Other (intubated) Neck: Positive for: Normal Cardiovascular/Chest: Positive for: Regular Rate, Rhythm Respiratory: Positive for: Decreased Breath Sounds (present with bagging; pt. with no effort on her own) Gastrointestinal/Abdominal: Positive for: Soft Back: Positive for: Normal Inspection Extremity: Negative for: Pedal Edema Neurologic/Psych: Positive for: Other (intubated and sedated, no response to neurological exam.) - Laboratory Results Result Diagrams: 11/20/17 09:15 11/20/17 09:15 Interpretation Of Abn Labs: 7.9 K, bun and cr elevated - ECG ECG: Positive for: Interpreted By Me, Viewed By Me ECG Rhythm: Positive for: Normal QRS, Normal ST Segment, Sinus Rhythm Interpretation Of Abn EKG: ? peaking t waves - Progress ED Course And Treament: 914: Will give 2L of NS and re-evaluate pt BP and consider central line. 945: Will need central line. Potassium tx ordered. 1038: Another amp of bicarb to be given. Central line in place in L femoral for emergent access and tx. Will start levophed for bp being low despite fluids 2 L. 1 versed given during procedure as pt. was moving legs. Pt. possible GI bleed vs. obstruction on top of the hyperkalemia and respiratory failure. Will get ct. 1045: Spoke with Dr. Castro, will admit. Spoke with Dr. Dubon. Will admit. Will need to consider for abd pathology and obstruction causing issues. Pending BP stabilization and then will get it. 1131: Spoke with Dr. Bowles. Will consult. Possible dialysis, will decide when pt. gets to ICU. Agrees with current tx. Pt. not a sepis based on findings and presentation; no infectious source identified. 1238: VBG improving from old. Continue meds and tx. Pending CT. Surgery resident aware of case and concern for possible ischemic bowel. 1345: Spoke with radiology. Pt. with ischemic bowel, micro perf, and bowel obstruction. Surgery are. ICU notified. Surgery attending in discussion with resident. GI paged. 1415: Spoke with GI. Continue current care. No additional tx. Considering GI bleeding, will hold off on anticoagulation. - Critical Care Total Time (In Min): 120 Documented Critical Care: Time excludes all time spent performint seperately billable procedures Disposition - Clinical Impression Clinical Impression: Ischemia, bowel, Bowel obstruction, Acute renal failure, Bowel perforation, Hyperkalemia, Respiratory failure, GI bleed - Patient ED Disposition Is Patient to be Admitted: Yes Counseled Patient/Family Regarding: Studies Performed, Diagnosis - Disposition Disposition Time: 13:43 Condition: CRITICAL - Pt Status Changed To: Hospital Disposition Of: Inpatient - Admit Certification Admit to Inpatient:: After my assessment, the patient will require hospitalization for at least two midnights. This is because of the severity of symptoms shown, intensity of services needed, and/or the medical risk in this patient being treated as an outpatient. - POA Present On Arrival: None Central Line Placement - Central Line Placement Indication: Emergent IV Access (emergent due to hyperkalemia and better access) Central Line Placement: Left: Femoral The Area Was Thoroughly Prepared With: Chlorhexidine, Draped Using Sterile Technique Area Was Locally Anesthetized With: Lidocaine 1% Procedure: Triple Lumen, Placed Using Standard Seldinger Technique, Sterile Dressing Placed Over Line, Procedure Tolerated Well
[2017-11-20] MEDS ORDERED: Albuterol-Ipratrop 3 mg / 0.5 (3 ml) UD ONE ×2 (09:32→10:27)
[2017-11-20 09:37] LABS: VENOUS BLOOD GAS PCO2 99 mmHg (40-60); VENOUS BLOOD GAS PO2 31 mm/Hg (30-55); VENOUS BLOOD PH < 6.80 (7.32-7.43)
[2017-11-20 09:39] LABS: BASO % 0.2 % (0.0-2.0); EOS # 0.2 K/uL (0.0-0.7); EOS % 1.8 % (0.0-4.0); HEMOGLOBIN 11.2 g/dL (12.0-16.0); LYMPH # 3.8 K/uL (1.0-4.3); MEAN CELL VOLUME 110.3 fl (81.0-99.0); MEAN CORPUSCULAR HEMOGLOBIN 32.6 pg (27.0-31.0); MEAN CORPUSCULAR HGB CONC 29.6 g/dL (33.0-37.0); MEAN PLATELET VOLUME 13.5 fl (7.2-11.7); MONO # 1.6 K/uL (0.0-0.8); MONO % 12.1 % (0.0-10.0); NEUT # 7.9 K/uL (1.8-7.0); NEUT % 57.9 % (50.0-75.0); NRBC % 1.6 % (0.0-0.0); RBC 3.43 Mil/uL (3.80-5.20); RED CELL DISTRIBUTION WIDTH 15.7 % (11.5-14.5); WHITE BLOOD COUNT 13.6 K/uL (4.8-10.8)
--- NOTE | 2017-11-20 09:44 | RAD ---
HISTORY: for ng placement COMPARISON: No prior. FINDINGS: BOWEL: Limited evaluation. Mildly dilated loops of small bowel. No definite air seen in the region of the rectum in the pelvis. BONES: Limited evaluation. OTHER FINDINGS: Feeding tube is seen coursing below the level of the diaphragm overlying the projection of presumed stomach bubble. Possible small pleural effusion on the left. IMPRESSION: Findings as above.
[2017-11-20 09:45] LABS: INR 1.3 (0.9-1.2); PARTIAL THROMBOPLASTIN TIME 33.5 Seconds (25.6-37.1); PROTHROMBIN TIME 14.7 Seconds (9.8-13.1)
[2017-11-20] MEDS: Pantoprazole 40 MG in Sodium Chloride 0.9% 100 ML IVPB SCH ×2 (09:48→15:26)
[2017-11-20 09:55] LABS: TROPONIN I 0.031 ng/mL (0.00-0.120)
[2017-11-20 09:56] LABS: ALB/GLOB RATIO 1.3 (1.0-2.1); ALBUMIN 4.4 g/dL (3.5-5.0); CALCIUM 7.7 mg/dL (8.4-10.2)
[2017-11-20] MEDS ORDERED: Dextrose 50% SYRINGE Inj (50 ml) IVP STA ×2 (10:01→16:15)
[2017-11-20] MEDS ORDERED: Insulin Regular 100 units/ml IV STA (10:02)
[2017-11-20] MEDS ORDERED: Calcium Gluconate 4.65 mEq/10 ml Inj IV ONE ×2 (10:02→16:14)
--- NOTE | 2017-11-20 10:03 | RAD ---
HISTORY: Sepsis Patient COMPARISON: 07/09/2017 FINDINGS: LUNGS: Possible atelectatic changes in the lung bases. PLEURA: Spot possible small pleural effusion in the left lung base. CARDIOVASCULAR: Stable cardiomediastinal silhouette. OSSEOUS STRUCTURES: Degenerative changes. VISUALIZED UPPER ABDOMEN: Feeding tube coursing below the level of the diaphragm. OTHER FINDINGS: ETT within the right mainstem bronchus. IMPRESSION: ET Tube in the right mainstem bronchus. Recommend retraction. Discussed with Dr. Platt at approximately 9:53 a.m. on 11/20/2017.
[2017-11-20] MEDS ORDERED: Dextrose 50% SYRINGE Inj (50 ml) ONE (10:15)
[2017-11-20] MEDS ORDERED: Calcium Gluconate 4.6 MEQ in Sodium Chloride 0.9% 100 ML IV ONE ×2 (10:15→16:30)
[2017-11-20] MEDS ORDERED: Midazolam 2 MG/2 ML VIAL ONE (10:17)
[2017-11-20] MEDS ORDERED: Lidocaine 1% Inj (20ml) ONE (10:20)
[2017-11-20] MEDS ORDERED: Lidocaine 1% Inj (20ml) IJ STA (10:35)
[2017-11-20] MEDS ORDERED: Sodium Chloride 0.9% 500 ML IV SCH ×2 (11:30→14:54)
[2017-11-20] MEDS ORDERED: Midazolam 2 MG/2 ML VIAL IV STA ×2 (11:35→11:36)
[2017-11-20] MEDS ORDERED: Midazolam 50 MG in Dextrose 5% In Water 50 ML IV ONE (11:45)
--- NOTE | 2017-11-20 11:46 | CP.PCM.HP ---
History of Present Illness - History of Present Illness History of Present Illness: 57 yo female with history of COPD, HTN, HLD and Herniated Disc brought in by EMS intubated. As per ER history patient has been vomiting for 3 days but never sought consultation until she developed difficulty of breathing. EMS was called and patient was found to be in respiratory distress. She was given Duoneb x 3, 0.3mg of Epi, 2gm of Mg, 125mg of SoluMedrol, 50mg of Benadryl but nothing works. She then went in to respiratory arrest and was intubated preceded with 80mg of Ketamine. Patient vomited dark color vomitus during intubation. Present on Admission - Present on Admission Any Indicators Present on Admission: No History of DVT/PE: No History of Uncontrolled Diabetes: No Urinary Catheter: No Decubitus Ulcer Present: No Review of Systems - Review of Systems Systems not reviewed;Unavailable: Intubated Past Patient History - Infectious Disease Hx of Infectious Diseases: None - Tetanus Immunizations Tetanus Immunization: Unknown - Past Medical History & Family History Past Medical History?: Yes - Past Social History Smoking Status: Light Smoker < 10 Cigarettes Daily - CARDIAC Hx Hypercholesterolemia: Yes Hx Hypertension: Yes - PULMONARY Hx Asthma: Yes Hx Chronic Obstructive Pulmonary Disease (COPD): Yes (Emphysema) Hx Emphysema: Yes - NEUROLOGICAL Hx Migraine: Yes - HEENT Hx HEENT Problems: No - RENAL Hx Chronic Kidney Disease: No - ENDOCRINE/METABOLIC Hx Endocrine Disorders: No - HEMATOLOGICAL/ONCOLOGICAL Hx Human Immunodeficiency Virus (HIV): No - INTEGUMENTARY Hx Dermatological Problems: No - MUSCULOSKELETAL/RHEUMATOLOGICAL Hx Arthritis: Yes (OA) - GASTROINTESTINAL Hx Gastrointestinal Disorders: Yes Other/Comment: Hx polyps and "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 absent: Scleral icterus - ENT Exam ENT Exam: Mucous Membranes Moist - Neck Exam Neck exam: Negative for: Meningismus - Respiratory Exam Respiratory Exam: absent: Rales, Rhonchi, Wheezes - Cardiovascular Exam Cardiovascular Exam: REGULAR RHYTHM, +S1, +S2 - GI/Abdominal Exam GI & Abdominal Exam: Soft. absent: Tenderness - Rectal Exam Rectal Exam: Deferred - Extremities Exam Extremities exam: Negative for: pedal edema - Neurological Exam Neurological exam: Alert (patient able to respond by nodding her head) - Psychiatric Exam Psychiatric exam: Normal Affect - Skin Skin Exam: Dry, Intact Results - Vital Signs Recent Vital Signs: Last Vital Signs Temp 97.9 F 11/20/17 09:48 Pulse 83 11/20/17 10:56 Resp 14 11/20/17 10:56 BP 66/38 L 11/20/17 10:56 Pulse Ox 94 L 11/20/17 10:56 - Labs Result Diagrams: 11/20/17 09:15 11/20/17 09:15 Labs: Laboratory Results - last 24 hr 11/20/17 11/20/17 11/20/17 08:52 09:15 09:15 WBC 13.6 H D RBC 3.43 L Hgb 11.2 L Hct 37.9 MCV 110.3 H D MCH 32.6 H MCHC 29.6 L RDW 15.7 H Plt Count 215 MPV 13.5 H Neut % (Auto) 57.9 Lymph % (Auto) 28.0 [place] % (Auto) 12.1 H Eos % (Auto) 1.8 Baso % (Auto) 0.2 Neut # (Auto) 7.9 H Lymph # (Auto) 3.8 [place] # (Auto) 1.6 H Eos # (Auto) 0.2 Baso # (Auto) 0.0 PT INR APTT pO2 VBG pH VBG pCO2 VBG O2 Sat (Calc) VBG Potassium Glucose Lactate FiO2 Blood Gas Comments Crit Value Called To Crit Value Called By Crit Value Read Back Blood Gas Notified Time Sodium 141 Potassium 7.9 H* D Chloride 82 L Carbon Dioxide 10 L* D Anion Gap 57 H BUN 116 H* D Creatinine 15.3 H* D Est GFR ( Amer) 3 Est GFR (Non-Af Amer) 2 POC Glucose (mg/dL) 79 Random Glucose 62 L Calcium 7.7 L Phosphorus 24.3 H Magnesium 6.4 H* D Total Bilirubin 1.1 AST 295 H D ALT 109 H D Alkaline Phosphatase 106 Troponin I 0.0310 NT-Pro-B Natriuret Pep 506 Total Protein 7.7 Albumin 4.4 Globulin 3.4 Albumin/Globulin Ratio 1.3 Venous Blood Potassium Stool Occult Blood Alcohol, Quantitative 10 Blood Type Blood Type Confirm Antibody Screen BBK History Checked 11/20/17 11/20/17 11/20/17 09:15 09:15 09:33 WBC RBC Hgb Hct MCV MCH MCHC RDW Plt Count MPV Neut % (Auto) Lymph % (Auto) [place] % (Auto) Eos % (Auto) Baso % (Auto) Neut # (Auto) Lymph # (Auto) [place] # (Auto) Eos # (Auto) Baso # (Auto) PT 14.7 H INR 1.3 H APTT 33.5 pO2 31 VBG pH < 6.80 L* VBG pCO2 99 H* VBG O2 Sat (Calc) 19.3 L VBG Potassium 7.9 H* Glucose 38 L* Lactate > 20.0 H* FiO2 100.0 Blood Gas Comments Prvc/ac12/vt500/100% vbg Crit Value Called To Dr vicki calzada Crit Value Called By Li Crit Value Read Back Y Blood Gas Notified Time 937 Sodium 133.0 Potassium Chloride 88.0 L Carbon Dioxide Anion Gap BUN Creatinine Est GFR ( Amer) Est GFR (Non-Af Amer) POC Glucose (mg/dL) Random Glucose Calcium Phosphorus Magnesium Total Bilirubin AST ALT Alkaline Phosphatase Troponin I NT-Pro-B Natriuret Pep Total Protein Albumin Globulin Albumin/Globulin Ratio Venous Blood Potassium 7.9 H* Stool Occult Blood Alcohol, Quantitative Blood Type O POSITIVE Blood Type Confirm Antibody Screen Negative BBK History Checked No verified bt 11/20/17 11/20/17 09:35 10:00 WBC RBC Hgb Hct MCV MCH MCHC RDW Plt Count MPV Neut % (Auto) Lymph % (Auto) [place] % (Auto) Eos % (Auto) Baso % (Auto) Neut # (Auto) Lymph # (Auto) [place] # (Auto) Eos # (Auto) Baso # (Auto) PT INR APTT pO2 VBG pH VBG pCO2 VBG O2 Sat (Calc) VBG Potassium Glucose Lactate FiO2 Blood Gas Comments Crit Value Called To Crit Value Called By Crit Value Read Back Blood Gas Notified Time Sodium Potassium Chloride Carbon Dioxide Anion Gap BUN Creatinine Est GFR ( Amer) Est GFR (Non-Af Amer) POC Glucose (mg/dL) Random Glucose Calcium Phosphorus Magnesium Total Bilirubin AST ALT Alkaline Phosphatase Troponin I NT-Pro-B Natriuret Pep Total Protein Albumin Globulin Albumin/Globulin Ratio Venous Blood Potassium Stool Occult Blood Positive H Alcohol, Quantitative Blood Type Blood Type Confirm O POSITIVE Antibody Screen BBK History Checked Assessment & Plan - Assessment and Plan (Free Text) Assessment: 57 yo female with history of COPD, HTN, HLD and Herniated Disc brought in by EMS intubated. As per ER history patient has been vomiting for 3 days but never sought consultation until she developed difficulty of breathing. EMS was called and patient was found to be in respiratory distress. She was given Duoneb x 3, 0.3mg of Epi, 2gm of Mg, 125mg of SoluMedrol, 50mg of Benadryl but nothing works. She then went in to respiratory arrest and was intubated preceded with 80mg of Ketamine. Patient vomited dark color vomitus during intubation. 1. Acute Respiratory Failure maintain present ventilator setting pulmonary consult with Dr Fredy Licona via nebulizer q 6hrs SoluMedrol 60mg IV q 6hrs 2. Acute Renal Failure continue vigorus IV hydration renal consult with Dr Bowles 3. GI bleed/Obstruction maintain NGT intermittent suction surgical consult with Dr Almonte 4. COPD continue Duoneb nebulizer q 6hrs 5. HTN presently hypotensive hold Lotensin and Amlodipine 6. DVT prophylaxis avoid anticoagulant/antiplatelets venodyne boots
--- NOTE | 2017-11-20 11:49 | CP.CCUPN ---
CCU Subjective - Physician Review Subjective (Free Text): 57F BIBA after c/o vomiting x 3 days and had SOB today, given STAT tx with Duonebs, Mag, Epinephrine, Solumedrol, and finally required intubation under ketamine administration. After intubation, patient noted to have vomited again consisting of blackish liquid ( Occult blood + as tested in ER). In ER, now, awake, agitated, moving all extremities, but not following simple commands, breathing 14 on AC 12, TV 500ml, 100% oxygen. Hypotensive on arrival as well, given 1 L NSS by EMS, 2liters fluid challenge by ER and started on IV Levophed via R groin TLC. Fourth liter of NSS in progress now. A Acosta catheter was inserted and no urine output noted. PPi IV bolus and drip started in ER as well as urgent tx for Hyperkalemia with Bicarb/D50/Ca/Insulin and Albuterol nebs. NGT inserted and has drained approx 300ml dark, black fluid. Other vitals and I/O's reviewed. ROS: No other pertinent negs or positives on 10+ system review obtainable due to intubation. Allergies: Sulfa Home Meds: Albuterol, Flutic/Salmeterol, Xanax, Ambien, Neurontin, Simvastatin, Suffield-3, Flonase, Zetia, Flexeril, Benazepril, Novasc; Naprosyn, Cephalexin, Omeprazole. PMSFH: COPD, Emphysema, Hyperlipidemia, Migraine. All other Nursing and physician documentation reviewed to date; no new pertinent info noted relevant to current medical problems. EXAM- HEENT: no icterus, no gaze preference, pupils equal and reactive NECK: No JVD, supple, carotids equal upstroke bilat/no bruits CHEST: decreased BS bases, no wheezes audible HEART: regular, distant, S1S2, no rubs or murmurs ABD: soft, +mild distention, no tympany, no epigastric/periumbilical tenderness on deep palpation, no guarding, BS hypoactive EXT: ++ edema bilaterally. No peripheral/ digital cyanosis, no calf tenderness or palpable cords, distal pulses intact and symmetrical. NEURO: no gross focal motor deficits. SKIN: no rashes, warm and dry. LABS: WBC= 13.6 HGB= 11.2 PLTs= 215K Coags: INR 1.3 VBG: <6.80/99/31 VBG Lactate = > 20 Dw=045 K= 7.9 CL=82 HCO3= 10 BUN/Cr= 116/15.3 BS= 62 AST= 295 ALT= 109 T bili, and ALk Phos normal CXR / AXR: clear lung denney, Small bowel distention, no air fluid levels, no free air visible (my interp). EKG: sinus 69/min, normal axis; no predominant tall Ts (my interp) IMPRESSION / MAJOR PROBLEMS NOW: 1. Acute Hypoxemic Resp Failure 2 COPD / ASTHMA Exacerb. 2. SBO, r/o Mesenteric Ischemia; Bowel Syndrome 3. Severe AG Metab Acidosis 2 Predominant #2 and superimposed #1 4. Acute Renal Failure with Hyperkalemia, 2 Dehydration, Hypovolemic Shock, and or ATN. Septic Shock physiology may be evident as well. PLAN: 1. Aggressive Fluid hydration as she is now on MV support. Expect 5-6 liters of initial resuscitation fluid. Serial BMP, check CPK, serial Lactates, Procalcitonin level. Levophed titration for MAP maintenance of 65 or better. 2. Await CTAP study; would get Gen Surg eval. 3. Empiric Abx coverage with Maxipime, Flagyl, Vanco for now. 4. GI eval if active bleeding evident. 5. Hold all anti-HTN meds from home for now. 6. Duonebs Q4H, Solumedrol bolus already given. Steroids to be continued if any wheezing persists or PAPs remain elevated. 7. Prefer analgo-sedation over Midazolam drip while on MV support. CCU Objective - Vital Signs / Intake & Output Vital Signs (Last 4 hours): Vital Signs Temp Pulse Resp BP Pulse Ox 11/20/17 11:30 84 77/31 L 11/20/17 11:15 83 70/33 L 94 L 11/20/17 10:56 83 14 66/38 L 94 L 11/20/17 10:30 78 70/35 L 96 11/20/17 10:15 75 14 80/49 L 11/20/17 10:03 73 84/40 L 96 11/20/17 09:59 73 14 71/41 L 97 11/20/17 09:48 97.9 F 70 12 116/73 97 11/20/17 09:35 67 14 110/69 98 11/20/17 09:20 72 14 104/52 L 95 11/20/17 09:10 65 14 92/58 L 94 L 11/20/17 08:55 67 17 130/51 L Intake and Output (Last 8hrs): Intake & Output 11/19/17 11/20/17 11/20/17 22:59 06:59 14:59 Weight 165 lb 5.547 oz - Medications Active Medications: Active Medications Generic Name Dose Route Start Last Admin Trade Name Freq PRN Reason Stop Dose Admin Sodium Chloride 1,000 mls @ 1,000 mls/hr 11/20/17 09:00 11/20/17 09:17 Sodium Chloride 0.9% IV 1,000 mls/hr .Q1H AZEB Administration Pantoprazole Sodium 40 mg/ 100 mls @ 20 mls/hr 11/20/17 09:00 11/20/17 09:48 Sodium Chloride IVPB 20 mls/hr Q5H AZEB Administration 8 MG/HR Norepinephrine Bitartrate 16 266 mls @ 2.49 mls/hr 11/20/17 10:36 11/20/17 10 :56 mg/ Dextrose IV 11/21/17 10:35 2.49 mls/hr .Q24H ONE Administration 2.5 MCG/MIN Sodium Chloride 1,000 mls @ 1,000 mls/hr 11/20/17 10:50 11/20/17 10:57 Sodium Chloride 0.9% IV 11/20/17 11:49 1,000 mls/hr .Q1H STA Administration Sodium Chloride 500 mls @ 125 mls/hr 11/20/17 11:30 Sodium Chloride 0.9% IV .Q4H AZEB Midazolam HCl 50 mg/ Dextrose 100 mls @ 4 mls/hr 11/20/17 11:45 IV 11/21/17 11:44 .Q24H ONE Protocol 2 MG/HR - Patient Studies Lab Studies: Lab Studies 11/20/17 11/20/17 11/20/17 Range/Units 10:00 09:35 09:33 WBC (4.8-10.8) K/uL RBC (3.80-5.20) Mil/uL Hgb (12.0-16.0) g/dL Hct (34.0-47.0) % MCV (81.0-99.0) fl MCH (27.0-31.0) pg MCHC (33.0-37.0) g/dL RDW (11.5-14.5) % Plt Count (130-400) K/uL MPV (7.2-11.7) fl Neut % (Auto) (50.0-75.0) % Lymph % (Auto) (20.0-40.0) % [place] % (Auto) (0.0-10.0) % Eos % (Auto) (0.0-4.0) % Baso % (Auto) (0.0-2.0) % Neut # (Auto) (1.8-7.0) K/uL Lymph # (Auto) (1.0-4.3) K/uL [place] # (Auto) (0.0-0.8) K/uL Eos # (Auto) (0.0-0.7) K/uL Baso # (Auto) (0.0-0.2) K/uL PT (9.8-13.1) Seconds INR (0.9-1.2) APTT (25.6-37.1) Seconds pO2 31 (30-55) mm/Hg VBG pH < 6.80 L* (7.32-7.43) VBG pCO2 99 H* (40-60) mmHg VBG O2 Sat (Calc) 19.3 L (40-65) % VBG Potassium 7.9 H* (3.6-5.2) mmol/L Glucose 38 L* (65-105) mg/dL Lactate > 20.0 H* (0.7-2.1) mmol/L FiO2 100.0 % Blood Gas Comments Prvc/ac12/vt500/100% vbg Crit Value Called To Dr vicki calzada Crit Value Called By Li Crit Value Read Back Y Blood Gas Notified Time 937 Sodium 133.0 (132-148) mmol/l Potassium (3.6-5.0) MMOL/L Chloride 88.0 L (98-107) mmol/L Carbon Dioxide (22-30) mmol/L Anion Gap (10-20) BUN (7-17) mg/dl Creatinine (0.7-1.2) mg/dl Est GFR ( Amer) Est GFR (Non-Af Amer) POC Glucose (mg/dL) (65-110) mg/dL Random Glucose (65-105) mg/dL Calcium (8.4-10.2) mg/dL Phosphorus (2.5-4.5) mg/dl Magnesium (1.6-2.3) MG/DL Total Bilirubin (0.2-1.3) mg/dl AST (14-36) U/L ALT (9-52) U/L Alkaline Phosphatase (38-126) U/L Troponin I (0.00-0.120) ng/mL NT-Pro-B Natriuret Pep (0-900) pg/ml Total Protein (6.3-8.2) G/DL Albumin (3.5-5.0) g/dL Globulin (2.2-3.9) gm/dL Albumin/Globulin Ratio (1.0-2.1) Venous Blood Potassium 7.9 H* (3.6-5.2) mmol/L Stool Occult Blood Positive H (NEGATIVE) Alcohol, Quantitative (0-10) mg/dl Blood Type Blood Type Confirm O POSITIVE Antibody Screen BBK History Checked 11/20/17 11/20/17 11/20/17 Range/Units 09:15 09:15 09:15 WBC 13.6 H D (4.8-10.8) K/uL RBC 3.43 L (3.80-5.20) Mil/uL Hgb 11.2 L (12.0-16.0) g/dL Hct 37.9 (34.0-47.0) % MCV 110.3 H D (81.0-99.0) fl MCH 32.6 H (27.0-31.0) pg MCHC 29.6 L (33.0-37.0) g/dL RDW 15.7 H (11.5-14.5) % Plt Count 215 (130-400) K/uL MPV 13.5 H (7.2-11.7) fl Neut % (Auto) 57.9 (50.0-75.0) % Lymph % (Auto) 28.0 (20.0-40.0) % [place] % (Auto) 12.1 H (0.0-10.0) % Eos % (Auto) 1.8 (0.0-4.0) % Baso % (Auto) 0.2 (0.0-2.0) % Neut # (Auto) 7.9 H (1.8-7.0) K/uL Lymph # (Auto) 3.8 (1.0-4.3) K/uL [place] # (Auto) 1.6 H (0.0-0.8) K/uL Eos # (Auto) 0.2 (0.0-0.7) K/uL Baso # (Auto) 0.0 (0.0-0.2) K/uL PT 14.7 H (9.8-13.1) Seconds INR 1.3 H (0.9-1.2) APTT 33.5 (25.6-37.1) Seconds pO2 (30-55) mm/Hg VBG pH (7.32-7.43) VBG pCO2 (40-60) mmHg VBG O2 Sat (Calc) (40-65) % VBG Potassium (3.6-5.2) mmol/L Glucose (65-105) mg/dL Lactate (0.7-2.1) mmol/L FiO2 % Blood Gas Comments Crit Value Called To Crit Value Called By Crit Value Read Back Blood Gas Notified Time Sodium (132-148) mmol/l Potassium (3.6-5.0) MMOL/L Chloride (98-107) mmol/L Carbon Dioxide (22-30) mmol/L Anion Gap (10-20) BUN (7-17) mg/dl Creatinine (0.7-1.2) mg/dl Est GFR ( Amer) Est GFR (Non-Af Amer) POC Glucose (mg/dL) (65-110) mg/dL Random Glucose (65-105) mg/dL Calcium (8.4-10.2) mg/dL Phosphorus (2.5-4.5) mg/dl Magnesium (1.6-2.3) MG/DL Total Bilirubin (0.2-1.3) mg/dl AST (14-36) U/L ALT (9-52) U/L Alkaline Phosphatase (38-126) U/L Troponin I (0.00-0.120) ng/mL NT-Pro-B Natriuret Pep (0-900) pg/ml Total Protein (6.3-8.2) G/DL Albumin (3.5-5.0) g/dL Globulin (2.2-3.9) gm/dL Albumin/Globulin Ratio (1.0-2.1) Venous Blood Potassium (3.6-5.2) mmol/L Stool Occult Blood (NEGATIVE) Alcohol, Quantitative (0-10) mg/dl Blood Type O POSITIVE Blood Type Confirm Antibody Screen Negative BBK History Checked No verified bt 11/20/17 11/20/17 Range/Units 09:15 08:52 WBC (4.8-10.8) K/uL RBC (3.80-5.20) Mil/uL Hgb (12.0-16.0) g/dL Hct (34.0-47.0) % MCV (81.0-99.0) fl MCH (27.0-31.0) pg MCHC (33.0-37.0) g/dL RDW (11.5-14.5) % Plt Count (130-400) K/uL MPV (7.2-11.7) fl Neut % (Auto) (50.0-75.0) % Lymph % (Auto) (20.0-40.0) % [place] % (Auto) (0.0-10.0) % Eos % (Auto) (0.0-4.0) % Baso % (Auto) (0.0-2.0) % Neut # (Auto) (1.8-7.0) K/uL Lymph # (Auto) (1.0-4.3) K/uL [place] # (Auto) (0.0-0.8) K/uL Eos # (Auto) (0.0-0.7) K/uL Baso # (Auto) (0.0-0.2) K/uL PT (9.8-13.1) Seconds INR (0.9-1.2) APTT (25.6-37.1) Seconds pO2 (30-55) mm/Hg VBG pH (7.32-7.43) VBG pCO2 (40-60) mmHg VBG O2 Sat (Calc) (40-65) % VBG Potassium (3.6-5.2) mmol/L Glucose (65-105) mg/dL Lactate (0.7-2.1) mmol/L FiO2 % Blood Gas Comments Crit Value Called To Crit Value Called By Crit Value Read Back Blood Gas Notified Time Sodium 141 (132-148) mmol/l Potassium 7.9 H* D (3.6-5.0) MMOL/L Chloride 82 L (98-107) mmol/L Carbon Dioxide 10 L* D (22-30) mmol/L Anion Gap 57 H (10-20) BUN 116 H* D (7-17) mg/dl Creatinine 15.3 H* D (0.7-1.2) mg/dl Est GFR ( Amer) 3 Est GFR (Non-Af Amer) 2 POC Glucose (mg/dL) 79 (65-110) mg/dL Random Glucose 62 L (65-105) mg/dL Calcium 7.7 L (8.4-10.2) mg/dL Phosphorus 24.3 H (2.5-4.5) mg/dl Magnesium 6.4 H* D (1.6-2.3) MG/DL Total Bilirubin 1.1 (0.2-1.3) mg/dl AST 295 H D (14-36) U/L ALT 109 H D (9-52) U/L Alkaline Phosphatase 106 (38-126) U/L Troponin I 0.0310 (0.00-0.120) ng/mL NT-Pro-B Natriuret Pep 506 (0-900) pg/ml Total Protein 7.7 (6.3-8.2) G/DL Albumin 4.4 (3.5-5.0) g/dL Globulin 3.4 (2.2-3.9) gm/dL Albumin/Globulin Ratio 1.3 (1.0-2.1) Venous Blood Potassium (3.6-5.2) mmol/L Stool Occult Blood (NEGATIVE) Alcohol, Quantitative 10 (0-10) mg/dl Blood Type Blood Type Confirm Antibody Screen BBK History Checked Laboratory Results - last 24 hr 11/20/17 11/20/17 11/20/17 08:52 09:15 09:15 WBC 13.6 H D RBC 3.43 L Hgb 11.2 L Hct 37.9 MCV 110.3 H D MCH 32.6 H MCHC 29.6 L RDW 15.7 H Plt Count 215 MPV 13.5 H Neut % (Auto) 57.9 Lymph % (Auto) 28.0 [place] % (Auto) 12.1 H Eos % (Auto) 1.8 Baso % (Auto) 0.2 Neut # (Auto) 7.9 H Lymph # (Auto) 3.8 [place] # (Auto) 1.6 H Eos # (Auto) 0.2 Baso # (Auto) 0.0 PT INR APTT pO2 VBG pH VBG pCO2 VBG O2 Sat (Calc) VBG Potassium Glucose Lactate FiO2 Blood Gas Comments Crit Value Called To Crit Value Called By Crit Value Read Back Blood Gas Notified Time Sodium 141 Potassium 7.9 H* D Chloride 82 L Carbon Dioxide 10 L* D Anion Gap 57 H BUN 116 H* D Creatinine 15.3 H* D Est GFR ( Amer) 3 Est GFR (Non-Af Amer) 2 POC Glucose (mg/dL) 79 Random Glucose 62 L Calcium 7.7 L Phosphorus 24.3 H Magnesium 6.4 H* D Total Bilirubin 1.1 AST 295 H D ALT 109 H D Alkaline Phosphatase 106 Troponin I 0.0310 NT-Pro-B Natriuret Pep 506 Total Protein 7.7 Albumin 4.4 Globulin 3.4 Albumin/Globulin Ratio 1.3 Venous Blood Potassium Stool Occult Blood Alcohol, Quantitative 10 Blood Type Blood Type Confirm Antibody Screen BBK History Checked 11/20/17 11/20/17 11/20/17 09:15 09:15 09:33 WBC RBC Hgb Hct MCV MCH MCHC RDW Plt Count MPV Neut % (Auto) Lymph % (Auto) [place] % (Auto) Eos % (Auto) Baso % (Auto) Neut # (Auto) Lymph # (Auto) [place] # (Auto) Eos # (Auto) Baso # (Auto) PT 14.7 H INR 1.3 H APTT 33.5 pO2 31 VBG pH < 6.80 L* VBG pCO2 99 H* VBG O2 Sat (Calc) 19.3 L VBG Potassium 7.9 H* Glucose 38 L* Lactate > 20.0 H* FiO2 100.0 Blood Gas Comments Prvc/ac12/vt500/100% vbg Crit Value Called To Dr vicki calzada Crit Value Called By Li Crit Value Read Back Y Blood Gas Notified Time 937 Sodium 133.0 Potassium Chloride 88.0 L Carbon Dioxide Anion Gap BUN Creatinine Est GFR ( Amer) Est GFR (Non-Af Amer) POC Glucose (mg/dL) Random Glucose Calcium Phosphorus Magnesium Total Bilirubin AST ALT Alkaline Phosphatase Troponin I NT-Pro-B Natriuret Pep Total Protein Albumin Globulin Albumin/Globulin Ratio Venous Blood Potassium 7.9 H* Stool Occult Blood Alcohol, Quantitative Blood Type O POSITIVE Blood Type Confirm Antibody Screen Negative BBK History Checked No verified bt 11/20/17 11/20/17 09:35 10:00 WBC RBC Hgb Hct MCV MCH MCHC RDW Plt Count MPV Neut % (Auto) Lymph % (Auto) [place] % (Auto) Eos % (Auto) Baso % (Auto) Neut # (Auto) Lymph # (Auto) [place] # (Auto) Eos # (Auto) Baso # (Auto) PT INR APTT pO2 VBG pH VBG pCO2 VBG O2 Sat (Calc) VBG Potassium Glucose Lactate FiO2 Blood Gas Comments Crit Value Called To Crit Value Called By Crit Value Read Back Blood Gas Notified Time Sodium Potassium Chloride Carbon Dioxide Anion Gap BUN Creatinine Est GFR ( Amer) Est GFR (Non-Af Amer) POC Glucose (mg/dL) Random Glucose Calcium Phosphorus Magnesium Total Bilirubin AST ALT Alkaline Phosphatase Troponin I NT-Pro-B Natriuret Pep Total Protein Albumin Globulin Albumin/Globulin Ratio Venous Blood Potassium Stool Occult Blood Positive H Alcohol, Quantitative Blood Type Blood Type Confirm O POSITIVE Antibody Screen BBK History Checked EKG/Cardiology Studies: Cardiology / EKG Studies 11/20/17 08:55 ELECTROCARDIOGRAM Stat Comment: Mode Of Transportation: Reason For Exam: Sepsis Patient Fingerstick Blood Sugar Results: 79 Critical Care Progress Note - Ventilator Checklist Head of Bed 30 Degrees: Yes PUD Prophalyxis: Yes DVT Prophylaxis: Yes Oral Care with Chlorhexidine Gluconate {CHG}: Yes - Vent Settings MODE:: ASSIST CONTROL TIDAL VOLUME:: 500 RESP RATE:: 12 FIO2:: 100 - Extremities/Vascular Does the Patient have a Central Venous Catheter?: Yes Insertion Site: Femoral Vein Does the Patient need a Central Venous Catheter?: Yes Does the Patient have a Acosta Catheter?: Yes Does the Patient need a Acosta Catheter?: Yes Catheter Insertion Criteria: Need for accurate measurement of output in critically ill patient - Restraints Justification for Restraints: High risk for self extubation, High risk for removing IV access, High risk for harming self - Prophylaxis GI Prophylaxis GI: PPI - Prophylaxis DVT Prophylaxis DVT: SCDs - Nutrition Nutrition: NPO
[2017-11-20] MEDS ORDERED: Midazolam 5 MG/ML 50 MG in Dextrose 5% In Water 90 ML IV ONE (12:15)
[2017-11-20 12:26] LABS: ABG ALLEN TEST YES; ARTERIAL BLOOD GAS O2 SAT 79.8 % (95-98); ARTERIAL BLOOD GAS PCO2 48 mm/Hg (35-45); ARTERIAL BLOOD GAS PH 6.82 (7.35-7.45); ARTERIAL BLOOD GAS PO2 69 mm/Hg (80-100); ARTERIAL BLOOD GAS TCO2 9.3 mmol/L (22-28)
[2017-11-20] MEDS ORDERED: Cefepime 1 GM in Sodium Chloride 0.9% 100 ML IVPB SCH (12:45)
--- NOTE | 2017-11-20 13:42 | CT ---
PROCEDURE: CT HEAD WITHOUT CONTRAST. HISTORY: headache COMPARISON: Head CT from 06/28/2017. TECHNIQUE: Axial computed tomography images were obtained through the head/brain without intravenous contrast. Limited evaluation due to artifact from patient motion and metallic object in the anterior aspect of the cranium. Radiation dose: Total exam DLP = 1957.18 mGy-cm. This CT exam was performed using one or more of the following dose reduction techniques: Automated exposure control, adjustment of the mA and/or kV according to patient size, and/or use of iterative reconstruction technique. FINDINGS: HEMORRHAGE: No intracranial hemorrhage. BRAIN: No significant atrophy. Questionable effacement of sulcal spaces consistent with mild cerebral edema compared with the prior head CT from 06/28/2017. VENTRICLES: Unremarkable. No hydrocephalus. CALVARIUM: Unremarkable. PARANASAL SINUSES: Mucosal thickening involving the paranasal sinuses. MASTOID AIR CELLS: Unremarkable as visualized. No inflammatory changes. OTHER FINDINGS: None. IMPRESSION: No CT evidence of acute intracranial hemorrhage or acute territorial infarct. Acute infarction may be CT occult within first 24 hours. If a focal deficit persists, consider followup CT or MRI for further evaluation. Questionable mild cerebral edema. Follow-up recommended. Limited evaluation due to extensive artifact from patient motion and metallic object. Discussed with Dr. Platt at approximately 1:40 p.m. on 11/20/2017.
--- NOTE | 2017-11-20 13:58 | CP.PCM.CON ---
<Viji Lee - Last Filed: 11/20/17 16:15> History of Present Illness - History of Present Illness History of Present Illness: General surgery consult note for Dr. Almonte-Viji Lee, PGY-2 Pt S & E at bedside at 1300. Pt intubated, history as per EMR- tried to contact family for more history- did not answer the telephone. 57F w/PMH sig for COPD/emphysema consulted for GI bleed. As per EMR, pt with emesis x 3 days, SOB on day of admission with subsequent acute respiratory failure upon evaluation in ED requiring intubation/sedation, placement of left femoral TLC, 2 peripheral IVs and an NGT. After placing NGT, ann melenotic fluid was drained from stomach- approximately 300cc at time of evaluation. FOB was positive. Pt with Leukocytosis of 13.6 and Lactate >[address] abdomen with grossly distended stomach and small bowel with air flulid levels. Pt started on levophed drip due to hypotension. [id number] at bedside at 1600 with additional history: Pt has been c/o intermittent diffuse abdominal pain, approximately 2-3 x monthly with duration of 3-5 days for the last "few years". Would have N, V, F & C, diarrhea with each episode. Previously evaluated in [place] approximately 15 yrs ago with undocumented diagnosis of Crohn's disease, never treated. Last EGD/Colonoscopy approximately 3-4 yrs prior to evaluation with findings of "dark spots in her stomach and colon"- never treated. Recently seen by Dr. Pastrana with script for Toradol given for pain, was given Rx for Naproxen due to insurance issues- took for 3 days without alleviation. This episode started 3 days prior to evaluation, pt c/o diffuse abdominal pain, N & V, diarrhea. On day of evaluation, pt took a shower and after shower had difficulty breathing, EMS was called and pt transported to [facility] for evaluation. PMH: COPD/emphysema/Asthma, HTN, HLD, herniated discs and chronic back pain with history of [employer] customer [employer] pain medication use, osteoarthritis, hx Crohns ( undocumented diagnosis) PSH: Ex-lap w/pelvic tumor resection, C-sections, oophorectomy All: Sulfa SH: Admits to tobacco use- <#10 daily, Denies ETOH or illicit drug use; lives with long time boyfriend and his sister- considers her a "[id number]"; has siblings that she is not close with that do not live in the same state Review of Systems - Review of Systems Systems not reviewed;Unavailable: Intubated Past Patient History - Infectious Disease Hx of Infectious Diseases: None - Tetanus Immunizations Tetanus Immunization: Unknown - Past Medical History & Family History Past Medical History?: Yes - Past Social History Smoking Status: Light Smoker < 10 Cigarettes Daily - CARDIAC Hx Hypercholesterolemia: Yes Hx Hypertension: Yes - PULMONARY Hx Asthma: Yes Hx Chronic Obstructive Pulmonary Disease (COPD): Yes (Emphysema) Hx Emphysema: Yes - NEUROLOGICAL Hx Migraine: Yes - HEENT Hx HEENT Problems: No - RENAL Hx Chronic Kidney Disease: No - ENDOCRINE/METABOLIC Hx Endocrine Disorders: No - HEMATOLOGICAL/ONCOLOGICAL Hx Human Immunodeficiency Virus (HIV): No - INTEGUMENTARY Hx Dermatological Problems: No - MUSCULOSKELETAL/RHEUMATOLOGICAL Hx Arthritis: Yes (OA) - GASTROINTESTINAL Hx Gastrointestinal Disorders: Yes Other/Comment: Hx polyps and "floating tumor that wrapped around ovary" - GENITOURINARY/GYNECOLOGICAL Hx Genitourinary Disorders: No - PSYCHIATRIC Hx Anxiety: Yes - SURGICAL HISTORY Hx Surgeries: Yes Other/Comment: Tumor removal - ANESTHESIA Hx Anesthesia: Yes Hx Anesthesia Reactions: No Hx Malignant Hyperthermia: No Meds Allergies/Adverse Reactions: Allergies Allergy/AdvReac Type Severity Reaction Status Date / Time Sulfa (Sulfonamide Allergy RASH Verified 06/27/17 20:14 Antibiotics) - Medications Medications: Current Medications Sodium Chloride (Sodium Chloride 0.9%) 1,000 mls @ 1,000 mls/hr IV .Q1H AZEB Last Admin: 11/20/17 09:17 Dose: 1,000 mls/hr Pantoprazole Sodium 40 mg/ (Sodium Chloride) 100 mls @ 20 mls/hr IVPB Q5H AZEB PRN Reason: 8 MG/HR Last Admin: 11/20/17 09:48 Dose: 20 mls/hr Norepinephrine Bitartrate 16 (mg/ Dextrose) 266 mls @ 2.49 mls/hr IV .Q24H ONE PRN Reason: 2.5 MCG/MIN Stop: 11/21/17 10:35 Last Admin: 11/20/17 10:56 Dose: 2.49 mls/hr Sodium Chloride (Sodium Chloride 0.9%) 500 mls @ 125 mls/hr IV .Q4H AZEB Last Admin: 11/20/17 12:52 Dose: 125 mls/hr Midazolam HCl 50 mg/ Dextrose 100 mls @ 4 mls/hr IV .Q24H ONE; 2 MG/HR PRN Reason: Protocol Stop: 11/21/17 12:14 Last Admin: 11/20/17 12:07 Dose: 4 mls/hr Cefepime HCl 1 gm/ Sodium (Chloride) 100 mls @ 100 mls/hr IVPB DAILY AZEB PRN Reason: Protocol Vancomycin HCl 1 gm/ Sodium (Chloride) 250 mls @ 166.667 mls/hr IVPB STAT STA PRN Reason: Protocol Stop: 11/20/17 14:14 Methylprednisolone (Solu-Medrol) 60 mg IV Q6 [facility] Physical Exam - Constitutional Appears: Non-toxic, No Acute Distress - Eye Exam Eye Exam: Normal appearance Pupil Exam: Fixed, Mydriatic - ENT Exam ENT Exam: Mucous Membranes Dry Additional comments: dried blood in oral cavity - Neck Exam Neck exam: Positive for: Normal Inspection - Respiratory Exam Respiratory Exam: Wheezes. absent: Respiratory Distress Additional comments: on mechanical ventilation - Cardiovascular Exam Cardiovascular Exam: REGULAR RHYTHM, +S1, +S2 - GI/Abdominal Exam GI & Abdominal Exam: Distended (mild, also obese), Hypoactive Bowel Sounds, Soft. absent: Firm, Guarding - Exam Additional comments: Acosta in place- no UOP - Extremities Exam Extremities exam: Positive for: normal inspection - Neurological Exam Additional comments: intubated, sedated - Psychiatric Exam Additional comments: unable to assess, intubated, sedated - Skin Skin Exam: Dry, Intact, Normal Color, Warm Additional comments: left groin with TLC in place, dried blood around clear dressing Results - Vital Signs Recent Vital Signs: Last Vital Signs Temp 97.9 F 11/20/17 09:48 Pulse 84 11/20/17 13:42 Resp 14 11/20/17 13:42 BP 106/96 H 11/20/17 13:42 Pulse Ox 94 L 11/20/17 13:04 - Labs Result Diagrams: 11/20/17 09:15 11/20/17 09:15 Labs: Laboratory Results - last 24 hr 11/20/17 11/20/17 11/20/17 08:52 09:05 09:15 WBC RBC Hgb Hct MCV MCH MCHC RDW Plt Count MPV Neut % (Auto) Lymph % (Auto) Rhea % (Auto) Eos % (Auto) Baso % (Auto) Neut # (Auto) Lymph # (Auto) Rhea # (Auto) Eos # (Auto) Baso # (Auto) PT INR APTT pCO2 48 H pO2 69 L HCO3 5.0 L* ABG pH 6.82 L* ABG Total CO2 9.3 L ABG O2 Saturation 79.8 L ABG Base Excess -25.1 L Bryce Test Yes ABG Potassium 7.8 H* VBG pH VBG pCO2 VBG O2 Sat (Calc) VBG Potassium Sodium 132.0 141 Chloride 94.0 L 82 L Glucose 86 Lactate 14.3 H* Vent Mode Prvc/ac Mechanical Rate 12 FiO2 100.0 Tidal Volume 500 Blood Gas Comments Crit Value Called To Dr vicki calzada Crit Value Called By Li Crit Value Read Back Y Blood Gas Notified Time 1226 Potassium 7.9 H* D Carbon Dioxide 10 L* D Anion Gap 57 H BUN 116 H* D Creatinine 15.3 H* D Est GFR ( Amer) 3 Est GFR (Non-Af Amer) 2 POC Glucose (mg/dL) 79 Random Glucose 62 L Calcium 7.7 L Phosphorus 24.3 H Magnesium 6.4 H* D Total Bilirubin 1.1 AST 295 H D ALT 109 H D Alkaline Phosphatase 106 Troponin I 0.0310 NT-Pro-B Natriuret Pep 506 Total Protein 7.7 Albumin 4.4 Globulin 3.4 Albumin/Globulin Ratio 1.3 Arterial Blood Potassium 7.8 H* Venous Blood Potassium Stool Occult Blood Alcohol, Quantitative 10 Blood Type Blood Type Confirm Antibody Screen BBK History Checked 11/20/17 11/20/17 11/20/17 09:15 09:15 09:15 WBC 13.6 H D RBC 3.43 L Hgb 11.2 L Hct 37.9 MCV 110.3 H D MCH 32.6 H MCHC 29.6 L RDW 15.7 H Plt Count 215 MPV 13.5 H Neut % (Auto) 57.9 Lymph % (Auto) 28.0 Rhea % (Auto) 12.1 H Eos % (Auto) 1.8 Baso % (Auto) 0.2 Neut # (Auto) 7.9 H Lymph # (Auto) 3.8 Rhea # (Auto) 1.6 H Eos # (Auto) 0.2 Baso # (Auto) 0.0 PT 14.7 H INR 1.3 H APTT 33.5 pCO2 pO2 HCO3 ABG pH ABG Total CO2 ABG O2 Saturation ABG Base Excess Bryce Test ABG Potassium VBG pH VBG pCO2 VBG O2 Sat (Calc) VBG Potassium Sodium Chloride Glucose Lactate Vent Mode Mechanical Rate FiO2 Tidal Volume Blood Gas Comments Crit Value Called To Crit Value Called By Crit Value Read Back Blood Gas Notified Time Potassium Carbon Dioxide Anion Gap BUN Creatinine Est GFR ( Amer) Est GFR (Non-Af Amer) POC Glucose (mg/dL) Random Glucose Calcium Phosphorus Magnesium Total Bilirubin AST ALT Alkaline Phosphatase Troponin I NT-Pro-B Natriuret Pep Total Protein Albumin Globulin Albumin/Globulin Ratio Arterial Blood Potassium Venous Blood Potassium Stool Occult Blood Alcohol, Quantitative Blood Type O POSITIVE Blood Type Confirm Antibody Screen Negative BBK History Checked No verified bt 11/20/17 11/20/17 11/20/17 09:33 09:35 10:00 WBC RBC Hgb Hct MCV MCH MCHC RDW Plt Count MPV Neut % (Auto) Lymph % (Auto) Rhea % (Auto) Eos % (Auto) Baso % (Auto) Neut # (Auto) Lymph # (Auto) Rhea # (Auto) Eos # (Auto) Baso # (Auto) PT INR APTT pCO2 pO2 31 HCO3 ABG pH ABG Total CO2 ABG O2 Saturation ABG Base Excess Bryce Test ABG Potassium VBG pH < 6.80 L* VBG pCO2 99 H* VBG O2 Sat (Calc) 19.3 L VBG Potassium 7.9 H* Sodium 133.0 Chloride 88.0 L Glucose 38 L* Lactate > 20.0 H* Vent Mode Mechanical Rate FiO2 100.0 Tidal Volume Blood Gas Comments Prvc/ac12/vt500/100% vbg Crit Value Called To Dr vicki calzada Crit Value Called By Li Crit Value Read Back Y Blood Gas Notified Time 937 Potassium Carbon Dioxide Anion Gap BUN Creatinine Est GFR ( Amer) Est GFR (Non-Af Amer) POC Glucose (mg/dL) Random Glucose Calcium Phosphorus Magnesium Total Bilirubin AST ALT Alkaline Phosphatase Troponin I NT-Pro-B Natriuret Pep Total Protein Albumin Globulin Albumin/Globulin Ratio Arterial Blood Potassium Venous Blood Potassium 7.9 H* Stool Occult Blood Positive H Alcohol, Quantitative Blood Type Blood Type Confirm O POSITIVE Antibody Screen BBK History Checked Assessment & Plan - Assessment and Plan (Free Text) Assessment: 57F w/GI bleed Plan: Protonix therapeutic drip Monitor NGT output Strict I/O's Bolus normal saline prior to OR Serial abdominal exams Plan for OR today Consent in chart- witnessed by Dr. Miller & Dr. Dubon- pt off sedation, nodding yes to OR and blood consents Recommend GI consult DW attending Rosa, PGY-2 - Date & Time Date: 11/20/17 Time: 13:57 <Gurpreet Almonte - Last Filed: 11/20/17 16:53> Meds - Medications Medications: Current Medications Albuterol Sulfate (Albuterol 0.083% Inhal Janiya (2.5 Mg/3 Ml) Ud) 15 mg INH ONCE ONE Stop: 11/20/17 16:19 Dextrose (Dextrose 50% Inj) 50 ml IVP STAT STA Stop: 11/20/17 16:16 Hydrocortisone Sodium Succinate (Solu-Cortef) 50 mg IV Q6 AZEB Pantoprazole Sodium 40 mg/ (Sodium Chloride) 100 mls @ 20 mls/hr IVPB Q5H AZEB PRN Reason: 8 MG/HR Last Admin: 11/20/17 15:26 Dose: 20 mls/hr Norepinephrine Bitartrate 16 (mg/ Dextrose) 266 mls @ 2.49 mls/hr IV .Q24H ONE PRN Reason: 2.5 MCG/MIN Stop: 11/21/17 10:35 Last Admin: 11/20/17 10:56 Dose: 2.49 mls/hr Cefepime HCl 1 gm/ Sodium (Chloride) 100 mls @ 100 mls/hr IVPB DAILY AZEB PRN Reason: Protocol Last Admin: 11/20/17 15:26 Dose: 100 mls/hr Sodium Chloride (Sodium Chloride 0.9%) 1,000 mls @ 999 mls/hr IV .Q1H1M AZEB Stop: 11/21/17 14:08 Sodium Chloride (Sodium Chloride 0.9%) 500 mls @ 250 mls/hr IV .Q2H AZEB Metronidazole (Flagyl 500mg/100ml Ns) 100 mls @ 100 mls/hr IVPB Q8 AZEB PRN Reason: Protocol Last Admin: 11/20/17 16:16 Dose: 100 mls/hr Sodium Bicarbonate 150 meq/ (Dextrose) 1,150 mls @ 250 mls/hr IV .Q4H36M AZEB Stop: 11/21/17 16:07 Phenylephrine HCl 40 mg/ (Sodium Chloride) 254 mls @ 7.62 mls/hr IV .Q24H AZEB; 20 MCG/MIN PRN Reason: Protocol Stop: 11/21/17 16:09 Vasopressin 100 units/ Sodium (Chloride) 105 mls @ 1.89 mls/hr IV .Q24H AZEB PRN Reason: 0.03 UNITS/MIN Calcium Gluconate 4.6 meq/ (Sodium Chloride) 109.8924 mls @ 109.892 mls/hr IV ONCE ONE Stop: 11/20/17 17:29 Hydrocortisone Sodium Succinate 50 mg/ Sodium Chloride 100 mls @ 100 mls/hr IV Q6 AZEB Sodium Bicarbonate (Sodium Bicarbonate 7.5% (0.9 Meq/Ml) 50 Ml) 44.6 meq IV STAT STA Stop: 11/20/17 16:18 Thiamine HCl (Vitamin B1 Inj) 200 mg IV Q12 AZEB Results - Vital Signs Recent Vital Signs: Last Vital Signs Temp 91.5 F L 11/20/17 15:30 Pulse 87 11/20/17 15:30 Resp 14 11/20/17 13:42 BP 110/49 L 11/20/17 15:30 Pulse Ox 92 L 11/20/17 15:30 - Labs Result Diagrams: 11/20/17 09:15 11/20/17 09:15 Labs: Laboratory Results - last 24 hr 11/20/17 11/20/17 11/20/17 08:52 09:05 09:15 WBC RBC Hgb Hct MCV MCH MCHC RDW Plt Count MPV Neut % (Auto) Lymph % (Auto) Rhea % (Auto) Eos % (Auto) Baso % (Auto) Neut # (Auto) Lymph # (Auto) Rhea # (Auto) Eos # (Auto) Baso # (Auto) PT INR APTT pCO2 48 H pO2 69 L HCO3 5.0 L* ABG pH 6.82 L* ABG Total CO2 9.3 L ABG O2 Saturation 79.8 L ABG O2 Content ABG Base Excess -25.1 L ABG Hemoglobin ABG Carboxyhemoglobin POC ABG HHb (Measured) ABG Methemoglobin ABG O2 Capacity Bryce Test Yes ABG Potassium 7.8 H* VBG pH VBG pCO2 VBG O2 Sat (Calc) VBG Potassium A-a O2 Difference Hgb O2 Saturation Sodium 132.0 141 Chloride 94.0 L 82 L Glucose 86 Lactate 14.3 H* Vent Mode Prvc/ac Mechanical Rate 12 FiO2 100.0 Tidal Volume 500 Blood Gas Comments Crit Value Called To Dr vicki calzada Crit Value Called By Li Criayse Value Read Back Y Blood Gas Notified Time 1226 Potassium 7.9 H* D Carbon Dioxide 10 L* D Anion Gap 57 H BUN 116 H* D Creatinine 15.3 H* D Est GFR ( Amer) 3 Est GFR (Non-Af Amer) 2 POC Glucose (mg/dL) 79 Random Glucose 62 L Calcium 7.7 L Phosphorus 24.3 H Magnesium 6.4 H* D Total Bilirubin 1.1 AST 295 H D ALT 109 H D Alkaline Phosphatase 106 Troponin I 0.0310 NT-Pro-B Natriuret Pep 506 Total Protein 7.7 Albumin 4.4 Globulin 3.4 Albumin/Globulin Ratio 1.3 Arterial Blood Potassium 7.8 H* Venous Blood Potassium Stool Occult Blood Alcohol, Quantitative 10 Blood Type Blood Type Confirm Antibody Screen Crossmatch BBK History Checked 11/20/17 11/20/17 11/20/17 09:15 09:15 09:15 WBC 13.6 H D RBC 3.43 L Hgb 11.2 L Hct 37.9 MCV 110.3 H D MCH 32.6 H MCHC 29.6 L RDW 15.7 H Plt Count 215 MPV 13.5 H Neut % (Auto) 57.9 Lymph % (Auto) 28.0 Rhea % (Auto) 12.1 H Eos % (Auto) 1.8 Baso % (Auto) 0.2 Neut # (Auto) 7.9 H Lymph # (Auto) 3.8 Rhea # (Auto) 1.6 H Eos # (Auto) 0.2 Baso # (Auto) 0.0 PT 14.7 H INR 1.3 H APTT 33.5 pCO2 pO2 HCO3 ABG pH ABG Total CO2 ABG O2 Saturation ABG O2 Content ABG Base Excess ABG Hemoglobin ABG Carboxyhemoglobin POC ABG HHb (Measured) ABG Methemoglobin ABG O2 Capacity Bryce Test ABG Potassium VBG pH VBG pCO2 VBG O2 Sat (Calc) VBG Potassium A-a O2 Difference Hgb O2 Saturation Sodium Chloride Glucose Lactate Vent Mode Mechanical Rate FiO2 Tidal Volume Blood Gas Comments Crit Value Called To Crit Value Called By Crit Value Read Back Blood Gas Notified Time Potassium Carbon Dioxide Anion Gap BUN Creatinine Est GFR ( Amer) Est GFR (Non-Af Amer) POC Glucose (mg/dL) Random Glucose Calcium Phosphorus Magnesium Total Bilirubin AST ALT Alkaline Phosphatase Troponin I NT-Pro-B Natriuret Pep Total Protein Albumin Globulin Albumin/Globulin Ratio Arterial Blood Potassium Venous Blood Potassium Stool Occult Blood Alcohol, Quantitative Blood Type O POSITIVE Blood Type Confirm Antibody Screen Negative Crossmatch See Detail BBK History Checked No verified bt 11/20/17 11/20/17 11/20/17 09:33 09:35 10:00 WBC RBC Hgb Hct MCV MCH MCHC RDW Plt Count MPV Neut % (Auto) Lymph % (Auto) Rhea % (Auto) Eos % (Auto) Baso % (Auto) Neut # (Auto) Lymph # (Auto) Rhea # (Auto) Eos # (Auto) Baso # (Auto) PT INR APTT pCO2 pO2 31 HCO3 ABG pH ABG Total CO2 ABG O2 Saturation ABG O2 Content ABG Base Excess ABG Hemoglobin ABG Carboxyhemoglobin POC ABG HHb (Measured) ABG Methemoglobin ABG O2 Capacity Bryce Test ABG Potassium VBG pH < 6.80 L* VBG pCO2 99 H* VBG O2 Sat (Calc) 19.3 L VBG Potassium 7.9 H* A-a O2 Difference Hgb O2 Saturation Sodium 133.0 Chloride 88.0 L Glucose 38 L* Lactate > 20.0 H* Vent Mode Mechanical Rate FiO2 100.0 Tidal Volume Blood Gas Comments Prvc/ac12/vt500/100% vbg Crit Value Called To Dr vicki calzada Crit Value Called By Li Crit Value Read Back Y Blood Gas Notified Time 937 Potassium Carbon Dioxide Anion Gap BUN Creatinine Est GFR ( Amer) Est GFR (Non-Af Amer) POC Glucose (mg/dL) Random Glucose Calcium Phosphorus Magnesium Total Bilirubin AST ALT Alkaline Phosphatase Troponin I NT-Pro-B Natriuret Pep Total Protein Albumin Globulin Albumin/Globulin Ratio Arterial Blood Potassium Venous Blood Potassium 7.9 H* Stool Occult Blood Positive H Alcohol, Quantitative Blood Type Blood Type Confirm O POSITIVE Antibody Screen Crossmatch BBK History Checked 11/20/17 11/20/17 15:59 16:10 WBC RBC Hgb Hct MCV MCH MCHC RDW Plt Count MPV Neut % (Auto) Lymph % (Auto) Rhea % (Auto) Eos % (Auto) Baso % (Auto) Neut # (Auto) Lymph # (Auto) Rhea # (Auto) Eos # (Auto) Baso # (Auto) PT INR APTT pCO2 48 H 49 H pO2 73 L 75 L HCO3 5.3 L* 4.1 L* ABG pH 6.83 L* 6.83 L* ABG Total CO2 9.5 L 9.7 L ABG O2 Saturation 81.7 L 82.4 L ABG O2 Content 9.9 L ABG Base Excess -24.8 L -26.0 L ABG Hemoglobin 8.7 L ABG Carboxyhemoglobin 0 L POC ABG HHb (Measured) 17.8 H ABG Methemoglobin 2.6 ABG O2 Capacity 12.1 L Bryce Test Yes Yes ABG Potassium 8.4 H* VBG pH VBG pCO2 VBG O2 Sat (Calc) VBG Potassium A-a O2 Difference 224.0 220.0 Hgb O2 Saturation 79.6 L Sodium 131.0 L Chloride 97.0 L Glucose 64 L Lactate 10.6 H* Vent Mode A/c A/c Mechanical Rate 14 14 FiO2 50.0 50.0 Tidal Volume 500 500 Blood Gas Comments Crit Value Called To Jazlyn miller md Crit Value Called By [id number] Crit Value Read Back Y Y Blood Gas Notified Time 1602 1613 Potassium Carbon Dioxide Anion Gap BUN Creatinine Est GFR ( Amer) Est GFR (Non-Af Amer) POC Glucose (mg/dL) Random Glucose Calcium Phosphorus Magnesium Total Bilirubin AST ALT Alkaline Phosphatase Troponin I NT-Pro-B Natriuret Pep Total Protein Albumin Globulin Albumin/Globulin Ratio Arterial Blood Potassium 8.4 H* Venous Blood Potassium Stool Occult Blood Alcohol, Quantitative Blood Type Blood Type Confirm Antibody Screen Crossmatch BBK History Checked Assessment & Plan - Assessment and Plan (Free Text) Assessment: Perforated viscus/bowel ischemia. Pt in extremis with MOF/profound acidosis/on pressors Optimized as best possible under the circumstances Plan: Emerency exporatory laparotomy/enterectomy/ostomy High risk for intropertative/postoperative mortality/significant morbidity. Pt/sister in law fully understand the grave situation and grim prognosis. Want maximum treatment and agree with above plan.
--- NOTE | 2017-11-20 14:07 | CT ---
PROCEDURE: CT Abdomen and Pelvis without contrast. HISTORY: R/O stone COMPARISON: CT from 06/28/2017. TECHNIQUE: Contiguous axial images of the abdomen and pelvis. No oral or IV contrast given. Coronal and Sagittal reformats generated. Please note that due to lack of intravenous and oral contrast, evaluation of soft tissue structures and bowel is limited. Radiation dose: Total exam DLP = 1000.24 MGy-cm. This CT exam was performed using one or more of the following dose reduction techniques: Automated exposure control, adjustment of the mA and/or kV according to patient size, and/or use of iterative reconstruction technique. FINDINGS: LOWER THORAX: Atelectasis and bilateral pleural effusions. Partial collapse of the left lower lobe. Please note that in this setting evaluation of pulmonary nodules extremely limited. LIVER: Unremarkable. No gross lesion or ductal dilatation. GALLBLADDER AND BILE DUCTS: Moderate dilatation of the gallbladder. Possible sludge seen layering. No intrahepatic biliary ductal dilatation. Common bile duct does not appear abnormally dilated. PANCREAS: Unremarkable. No mass. No ductal dilatation. SPLEEN: Unremarkable. No splenomegaly. ADRENALS: Diffuse thickening of both adrenal glands. KIDNEYS AND URETERS: Unremarkable. No stone or hydronephrosis. BLADDER: Acosta catheter within the bladder limits evaluation. REPRODUCTIVE: Please note that evaluation of gynecologic organs is not optimal on CT imaging. APPENDIX: Unremarkable. BOWEL: Moderately dilated stomach. There is extensive air within the gastric wall along the greater and lesser curvatures. Air is also seen within the wall of the 1st portion of the duodenum. Foci of air is seen within the anterior mesenteric vessels best seen on images 68- 78. Referring, under dilatation on the proximal loops of small bowel with relatively collapsed distal loops of small bowel. This is consistent with a least a small bowel obstruction. The loops of colon seen distally appear relatively collapsed. Please note that this is suboptimally evaluated given lack of oral contrast. Focus of extraluminal air seen in the gastrohepatic ligament. PERITONEUM: Punctate foci of free air seen in the pelvis. Small amount of fluid seen in the pelvis. LYMPH NODES: Unremarkable. No enlarged lymph nodes. VASCULATURE: Suboptimal evaluation of the vessels. Superior mesenteric vein demonstrates a punctate focus of air. This is best seen on image 71, series 3. BONES: Degenerative changes of the osseous structures. OTHER FINDINGS: Thickening of the distal esophagus. Feeding tube in place with the distal tip within the stomach lumen. Venous line seen on the left. Punctate focus of air in the left common femoral vein. Soft tissue stranding surrounding the common femoral vein. This could be related to recent instrumentation. IMPRESSION: Small-bowel obstruction with associated pneumatosis involving the greater and lesser curvature of the stomach, 1st portion of the duodenum. Punctate foci of air seen in the mesenteric vessels for instance in the vessels surrounding the proximal colon and proximal small bowel, seen anteriorly. Underlying ischemia should be considered. Possible transition point in the mid pelvis. Collapsed distal colon limiting evaluation. Punctate focus of air seen in the superior mesenteric vein. Small amount of free fluid in the pelvis. Discussed with Dr. Platt at approximately 1:45 p.m. on 11/20/2017
--- NOTE | 2017-11-20 14:40 | PCM.PROC ---
Procedures Attestation:: I certify that I have explained the specified Operation(s) or Procedure(s), risks, benefits and reasonable alternatives to the Patient and/or other person responsible. The opportunity was given to ask questions and all questions answered - Arterial Line Right Femoral Aseptic technique was employed throughout the procedure: Hand Hygiene done prior to procedure, Full sterile barriers (mask, hair cover, sterile gown, sterile gloves), Chloraprep Antiseptic: 2 minute prep for Femoral Time Out Performed: Yes Pt. placed on Pulse Ox Monitor: Yes Central Line Prep: Chlorhexidine-Alcohol Combination Local Anesthesia Used: Lidocaine 1% Amount of Anesthesia Used (mls): 3 Ultrasound Used for Placement: No Gauge (Size): 20 gauge (6 inch angiocath) Technique Used: Guide Wire Technique Secured by: Suture Post procedure dressing: Clear vapor permeable, Chlorhexidine disc (Biopatch) Patient Tolerated Procedure: well Immediate Complications: none Additional Comments: Procedure done emergent conditions in ICU for [id number] BP measurements given refractory shock state on vasopressors.
[2017-11-20] MEDS ORDERED: Rocuronium 10 mg/ml (5 ml) ONE (15:47)
[2017-11-20] MEDS ORDERED: methylPREDNISolone 60 MG in Sodium Chloride 0.9% 50 ML IVPB SCH (16:00)
[2017-11-20 16:02] LABS: ABG ALLEN TEST YES; ARTERIAL BLOOD GAS HCO3 5.3 mmol/L (21-28); ARTERIAL BLOOD GAS HEMOGLOBIN 8.7 g/dL (11.7-17.4); ARTERIAL BLOOD GAS O2 CAPACITY 12.1 mL/dL (16-24); ARTERIAL BLOOD GAS O2 CONTENT 9.9 ML/dL (15-23); ARTERIAL BLOOD GAS O2 SAT 81.7 % (95-98); ARTERIAL BLOOD GAS PCO2 48 mm/Hg (35-45); ARTERIAL BLOOD GAS PH 6.83 (7.35-7.45); ARTERIAL BLOOD GAS PO2 73 mm/Hg (80-100); ARTERIAL BLOOD GAS TCO2 9.5 mmol/L (22-28)
[2017-11-20 16:13] LABS: ABG ALLEN TEST YES; ARTERIAL BLOOD GAS HCO3 4.1 mmol/L (21-28); ARTERIAL BLOOD GAS O2 SAT 82.4 % (95-98); ARTERIAL BLOOD GAS PCO2 49 mm/Hg (35-45); ARTERIAL BLOOD GAS PH 6.83 (7.35-7.45); ARTERIAL BLOOD GAS PO2 75 mm/Hg (80-100); ARTERIAL BLOOD GAS TCO2 9.7 mmol/L (22-28)
[2017-11-20] MEDS ORDERED: Sodium Bicarbonate 8.4% 150 MEQ in Dextrose 5% In Water 1,000 ML IV SCH (16:15)
[2017-11-20] MEDS ORDERED: Sodium Bicarbonate 7.5% (0.9 MEQ/ML) 50ML INJ IV STA (16:17)
[2017-11-20] MEDS ORDERED: Albuterol 0.083% Inhal Sol (2.5 mg/3 mL) UD INH ONE (16:18)
[2017-11-20 16:47] VITALS: TEMP 91.5
[2017-11-20] MEDS ORDERED: Sodium Chloride 0.9% 1,000 ML IV ONE (16:48)
[2017-11-20] MEDS ORDERED: metroNIDAZOLE 500mg/100ml NS 100 ML IVPB SCH (17:00)
[2017-11-20 17:03] LABS: BASO % 0.2 % (0.0-2.0); EOS % 1.1 % (0.0-4.0); HEMOGLOBIN 7.7 g/dL (12.0-16.0); LYMPH # 1.6 K/uL (1.0-4.3); LYMPH % 43.3 % (20.0-40.0); MEAN CELL VOLUME 106.4 fl (81.0-99.0); MEAN CORPUSCULAR HEMOGLOBIN 32.5 pg (27.0-31.0); MEAN CORPUSCULAR HGB CONC 30.6 g/dL (33.0-37.0); MEAN PLATELET VOLUME 11.8 fl (7.2-11.7); MONO # 0.1 K/uL (0.0-0.8); NEUT # 1.9 K/uL (1.8-7.0); NEUT % 51.4 % (50.0-75.0); NRBC % 4.6 % (0.0-0.0); RBC 2.38 Mil/uL (3.80-5.20); RED CELL DISTRIBUTION WIDTH 15.3 % (11.5-14.5); WHITE BLOOD COUNT 3.7 K/uL (4.8-10.8)
[2017-11-20 17:32] LABS: ALB/GLOB RATIO 0.9 (1.0-2.1); ALBUMIN 2.1 g/dL (3.5-5.0); ALT/SGPT 425 U/L (9-52); AST/SGOT > 750 U/L (14-36); BLOOD UREA NITROGEN 108 mg/dl (7-17); CALCIUM 4.5 mg/dL (8.4-10.2)
[2017-11-20 17:41] LABS: ABG ALLEN TEST YES; ARTERIAL BLOOD GAS HCO3 5.4 mmol/L (21-28); ARTERIAL BLOOD GAS O2 SAT 80.3 % (95-98); ARTERIAL BLOOD GAS PCO2 48 mm/Hg (35-45); ARTERIAL BLOOD GAS PH 6.84 (7.35-7.45); ARTERIAL BLOOD GAS PO2 69 mm/Hg (80-100); ARTERIAL BLOOD GAS TCO2 9.7 mmol/L (22-28)
--- NOTE | 2017-11-20 18:05 | PCM.SURG1 ---
Surgeon's Initial Post Op Note - Surgeon's Notes Surgeon: Dr. Gurpreet Almonte Microfilm Clerk: Viji Lee, PGY-2 Type of Anesthesia: General Endo Anesthesia Administered By: Dr Vaz Pre-Operative Diagnosis: Acute abdomen, mesenteric ischemia with microperforations Operative Findings: Cardiac arrest intraoperatively after intial incision; see op report Post-Operative Diagnosis: Acute abdomen, mesenteric ischemia with microperforations, cardiac arrest Operation Performed: Aborted exploratory laparotomy Specimen/Specimens Removed: None Estimated Blood Loss: EBL {In ML}: 0 Blood Products Given: PRBC Drains Used: No Drains Post-Op Condition: Critical Date of Surgery/Procedure: 11/20/17 Time of Surgery/Procedure: 17:20
[2017-11-20 18:08] LABS: GFR AFRICAN-AMERICAN 5; GFR NON-AFRICAN AMERICAN 4
--- NOTE | 2017-11-20 18:20 | CP.CCUPN ---
CCU Subjective - Physician Review Subjective (Free Text): Code Blue Notes: Code called after patient left ICU to OR, after first SQ abdominal incision, patient noted to be bradycardic with rapid deterioration to asystole. CPR / ACLS started immediately. High quality chest compressions ensured. After multiple doses of Epi, Atropine and Bicarbonate, ROSC achieved, manifest by sinus tachycardia at 140/min. Decision made to abort OR procedure and abdominal incision closed with ramón. Patient brought to ICU immediately. After approx. 15 mins later, recurrent bradycardia observed with wide complex QRSs noted at 40/min with quick degradation to asystole again. CPR/ ACLS resumed with high quality chest compressions. Further resuscitation attempts were unsuccessful after over a 20 + min period. Patient pronounced at 555PM. Discussed with PMD; will notify the [place] Pipeline Dispatch Operator of patients expiration. Patients friend present outside of the ICU room and notified of patients demise. She states she will try to reach other family members who may be estranged.
[2017-11-20 19:33] VITALS: BP 93/26; O2SAT 91
[2017-11-20 20:10] VITALS: PULSE 84; RESP 15
--- NOTE | 2017-11-20 20:26 | CP.PCM.CON ---
History of Present Illness - History of Present Illness History of Present Illness: REASONS FOR CONSULT : BHARATI WITH VERY HIGH BUN AND CREATININ SEVERE MET ACIDOSIS WITH BICARB 6.8 SEVERE HYPERKALEMIA WITH K 7.6 PT WAS SEEN AND EXAMINED IN ER CASE D/W WASHROOM OPERATOR DR CALDERON IN ER CASE D/W DAUGHTER ON BED SIDE IN ER PT IS VERY SICK .. PRESENTED WITH SEVERE BHARATI AND SEVERE ACIDOSIS AND HYPERKALEMIA Patient had CT scan of abdomen/pelvis and was noted to have small bowel obstruction with mesenteric ischemia. Surgical consult was called and emergency explore laparotomy was advised. Patient was able to respond by nodding her head with the consent for surgery. Surgery was aborted after opening the first layer when the patient went into cardiac arrest. CPR was initiated and patient was able to recover and was sent back to ICU. Patient coded again while in ICU and never able to recover in spite of prolonged and vigorous resuscitation. Patient was pronounced 5: 55PM. Explosive Ordnance Handler was called and Rima Rea released body at 1827. Original Note: History of Present Illness - History of Present Illness History of Present Illness: 57 yo female with history of COPD, HTN, HLD and Herniated Disc brought in by EMS intubated. As per ER history patient has been vomiting for 3 days but never sought consultation until she developed difficulty of breathing. EMS was called and patient was found to be in respiratory distress. She was given Duoneb x 3, 0.3mg of Epi, 2gm of Mg, 125mg of SoluMedrol, 50mg of Benadryl but nothing works. She then went in to respiratory arrest and was intubated preceded with 80mg of Ketamine. Patient vomited dark color vomitus during intubation. Present on Admission - Present on Admission Any Indicators Present on Admission: No History of DVT/PE: No History of Uncontrolled Diabetes: No Urinary Catheter: No Decubitus Ulcer Present: No Review of Systems - Review of Systems Systems not reviewed;Unavailable: Intubated Past Patient History - Infectious Disease Hx of Infectious Diseases: None - Tetanus Immunizations Tetanus Immunization: Unknown - Past Medical History & Family History Past Medical History?: Yes - Past Social History Smoking Status: Light Smoker < 10 Cigarettes Daily - CARDIAC Hx Hypercholesterolemia: Yes Hx Hypertension: Yes - PULMONARY Hx Asthma: Yes Hx Chronic Obstructive Pulmonary Disease (COPD): Yes (Emphysema) Hx Emphysema: Yes - NEUROLOGICAL Hx Migraine: Yes Past Patient History - Infectious Disease Hx of Infectious Diseases: None - Tetanus Immunizations Tetanus Immunization: Unknown - Past Medical History & Family History Past Medical History?: Yes - Past Social History Smoking Status: Light Smoker < 10 Cigarettes Daily - CARDIAC Hx Hypercholesterolemia: Yes Hx Hypertension: Yes - PULMONARY Hx Asthma: Yes Hx Chronic Obstructive Pulmonary Disease (COPD): Yes (Emphysema) Hx Emphysema: Yes - NEUROLOGICAL Hx Migraine: Yes - HEENT Hx HEENT Problems: No - RENAL Hx Chronic Kidney Disease: No - ENDOCRINE/METABOLIC Hx Endocrine Disorders: No - HEMATOLOGICAL/ONCOLOGICAL Hx Human Immunodeficiency Virus (HIV): No - INTEGUMENTARY Hx Dermatological Problems: No - MUSCULOSKELETAL/RHEUMATOLOGICAL Hx Arthritis: Yes (OA) - GASTROINTESTINAL Hx Gastrointestinal Disorders: Yes Other/Comment: Hx polyps and "floating tumor that wrapped around ovary" - GENITOURINARY/GYNECOLOGICAL Hx Genitourinary Disorders: No - PSYCHIATRIC Hx Anxiety: Yes - SURGICAL HISTORY Hx Surgeries: Yes Other/Comment: Tumor removal - ANESTHESIA Hx Anesthesia: Yes Hx Anesthesia Reactions: No Hx Malignant Hyperthermia: No Meds Allergies/Adverse Reactions: Allergies Allergy/AdvReac Type Severity Reaction Status Date / Time Sulfa (Sulfonamide Allergy RASH Verified 06/27/17 20:14 Antibiotics) - Medications Medications: Current Medications Hydrocortisone Sodium Succinate (Solu-Cortef) 50 mg IV Q6 AZEB Pantoprazole Sodium 40 mg/ (Sodium Chloride) 100 mls @ 20 mls/hr IVPB Q5H AZEB PRN Reason: 8 MG/HR Last Admin: 11/20/17 15:26 Dose: 20 mls/hr Norepinephrine Bitartrate 16 (mg/ Dextrose) 266 mls @ 2.49 mls/hr IV .Q24H ONE PRN Reason: 2.5 MCG/MIN Stop: 11/21/17 10:35 Last Admin: 11/20/17 10:56 Dose: 2.49 mls/hr Cefepime HCl 1 gm/ Sodium (Chloride) 100 mls @ 100 mls/hr IVPB DAILY AZEB PRN Reason: Protocol Last Admin: 11/20/17 15:26 Dose: 100 mls/hr Sodium Chloride (Sodium Chloride 0.9%) 1,000 mls @ 999 mls/hr IV .Q1H1M AZEB Stop: 11/21/17 14:08 Sodium Chloride (Sodium Chloride 0.9%) 500 mls @ 250 mls/hr IV .Q2H AZEB Metronidazole (Flagyl 500mg/100ml Ns) 100 mls @ 100 mls/hr IVPB Q8 AZEB PRN Reason: Protocol Last Admin: 11/20/17 16:16 Dose: 100 mls/hr Sodium Bicarbonate 150 meq/ (Dextrose) 1,150 mls @ 250 mls/hr IV .Q4H36M AZEB Stop: 11/21/17 16:07 Phenylephrine HCl 40 mg/ (Sodium Chloride) 254 mls @ 7.62 mls/hr IV .Q24H AZEB; 20 MCG/MIN PRN Reason: Protocol Stop: 11/21/17 16:09 Vasopressin 100 units/ Sodium (Chloride) 105 mls @ 1.89 mls/hr IV .Q24H AZEB PRN Reason: 0.03 UNITS/MIN Thiamine HCl (Vitamin B1 Inj) 200 mg IV Q12 AZEB Results - Vital Signs Recent Vital Signs: Last Vital Signs Temp 91.5 F L 11/20/17 15:30 Pulse 89 11/20/17 16:00 Resp 15 11/20/17 14:03 BP 93/26 L 11/20/17 16:00 Pulse Ox 91 L 11/20/17 16:00 - Labs Result Diagrams: 11/20/17 16:41 11/20/17 16:41 Labs: Laboratory Results - last 24 hr 11/20/17 11/20/17 11/20/17 08:52 09:05 09:15 WBC RBC Hgb Hct MCV MCH MCHC RDW Plt Count MPV Neut % (Auto) Lymph % (Auto) [place] % (Auto) Eos % (Auto) Baso % (Auto) Neut # (Auto) Lymph # (Auto) [place] # (Auto) Eos # (Auto) Baso # (Auto) PT INR APTT pCO2 48 H pO2 69 L HCO3 5.0 L* ABG pH 6.82 L* ABG Total CO2 9.3 L ABG O2 Saturation 79.8 L ABG O2 Content ABG Base Excess -25.1 L ABG Hemoglobin ABG Carboxyhemoglobin POC ABG HHb (Measured) ABG Methemoglobin ABG O2 Capacity Bryce Test Yes ABG Potassium 7.8 H* VBG pH VBG pCO2 VBG O2 Sat (Calc) VBG Potassium A-a O2 Difference Hgb O2 Saturation Sodium 132.0 141 Chloride 94.0 L 82 L Glucose 86 Lactate 14.3 H* Vent Mode Prvc/ac Mechanical Rate 12 FiO2 100.0 Tidal Volume 500 Blood Gas Comments Crit Value Called To Dr vicki calzada Crit Value Called By Li Crit Value Read Back Y Blood Gas Notified Time 1226 Potassium 7.9 H* D Carbon Dioxide 10 L* D Anion Gap 57 H BUN 116 H* D Creatinine 15.3 H* D Est GFR ( Amer) 3 Est GFR (Non-Af Amer) 2 POC Glucose (mg/dL) 79 Random Glucose 62 L Lactic Acid Calcium 7.7 L Phosphorus 24.3 H Magnesium 6.4 H* D Total Bilirubin 1.1 AST 295 H D ALT 109 H D Alkaline Phosphatase 106 Troponin I 0.0310 NT-Pro-B Natriuret Pep 506 Total Protein 7.7 Albumin 4.4 Globulin 3.4 Albumin/Globulin Ratio 1.3 Arterial Blood Potassium 7.8 H* Venous Blood Potassium Stool Occult Blood Alcohol, Quantitative 10 Blood Type Blood Type Confirm Antibody Screen Crossmatch BBK History Checked 11/20/17 11/20/17 11/20/17 09:15 09:15 09:15 WBC 13.6 H D RBC 3.43 L Hgb 11.2 L Hct 37.9 MCV 110.3 H D MCH 32.6 H MCHC 29.6 L RDW 15.7 H Plt Count 215 MPV 13.5 H Neut % (Auto) 57.9 Lymph % (Auto) 28.0 [place] % (Auto) 12.1 H Eos % (Auto) 1.8 Baso % (Auto) 0.2 Neut # (Auto) 7.9 H Lymph # (Auto) 3.8 [place] # (Auto) 1.6 H Eos # (Auto) 0.2 Baso # (Auto) 0.0 PT 14.7 H INR 1.3 H APTT 33.5 pCO2 pO2 HCO3 ABG pH ABG Total CO2 ABG O2 Saturation ABG O2 Content ABG Base Excess ABG Hemoglobin ABG Carboxyhemoglobin POC ABG HHb (Measured) ABG Methemoglobin ABG O2 Capacity Bryce Test ABG Potassium VBG pH VBG pCO2 VBG O2 Sat (Calc) VBG Potassium A-a O2 Difference Hgb O2 Saturation Sodium Chloride Glucose Lactate Vent Mode Mechanical Rate FiO2 Tidal Volume Blood Gas Comments Crit Value Called To Crit Value Called By Crit Value Read Back Blood Gas Notified Time Potassium Carbon Dioxide Anion Gap BUN Creatinine Est GFR ( Amer) Est GFR (Non-Af Amer) POC Glucose (mg/dL) Random Glucose Lactic Acid Calcium Phosphorus Magnesium Total Bilirubin AST ALT Alkaline Phosphatase Troponin I NT-Pro-B Natriuret Pep Total Protein Albumin Globulin Albumin/Globulin Ratio Arterial Blood Potassium Venous Blood Potassium Stool Occult Blood Alcohol, Quantitative Blood Type O POSITIVE Blood Type Confirm Antibody Screen Negative Crossmatch See Detail BBK History Checked No verified bt 11/20/17 11/20/17 11/20/17 09:33 09:35 10:00 WBC RBC Hgb Hct MCV MCH MCHC RDW Plt Count MPV Neut % (Auto) Lymph % (Auto) [place] % (Auto) Eos % (Auto) Baso % (Auto) Neut # (Auto) Lymph # (Auto) [place] # (Auto) Eos # (Auto) Baso # (Auto) PT INR APTT pCO2 pO2 31 HCO3 ABG pH ABG Total CO2 ABG O2 Saturation ABG O2 Content ABG Base Excess ABG Hemoglobin ABG Carboxyhemoglobin POC ABG HHb (Measured) ABG Methemoglobin ABG O2 Capacity Bryce Test ABG Potassium VBG pH < 6.80 L* VBG pCO2 99 H* VBG O2 Sat (Calc) 19.3 L VBG Potassium 7.9 H* A-a O2 Difference Hgb O2 Saturation Sodium 133.0 Chloride 88.0 L Glucose 38 L* Lactate > 20.0 H* Vent Mode Mechanical Rate FiO2 100.0 Tidal Volume Blood Gas Comments Prvc/ac12/vt500/100% vbg Crit Value Called To Dr vicki calzada Crit Value Called By Li Crit Value Read Back Y Blood Gas Notified Time 937 Potassium Carbon Dioxide Anion Gap BUN Creatinine Est GFR ( Amer) Est GFR (Non-Af Amer) POC Glucose (mg/dL) Random Glucose Lactic Acid Calcium Phosphorus Magnesium Total Bilirubin AST ALT Alkaline Phosphatase Troponin I NT-Pro-B Natriuret Pep Total Protein Albumin Globulin Albumin/Globulin Ratio Arterial Blood Potassium Venous Blood Potassium 7.9 H* Stool Occult Blood Positive H Alcohol, Quantitative Blood Type Blood Type Confirm O POSITIVE Antibody Screen Crossmatch BBK History Checked 11/20/17 11/20/17 11/20/17 15:41 15:59 16:10 WBC RBC Hgb Hct MCV MCH MCHC RDW Plt Count MPV Neut % (Auto) Lymph % (Auto) [place] % (Auto) Eos % (Auto) Baso % (Auto) Neut # (Auto) Lymph # (Auto) [place] # (Auto) Eos # (Auto) Baso # (Auto) PT INR APTT pCO2 48 H 48 H 49 H pO2 69 L 73 L 75 L HCO3 5.4 L* 5.3 L* 4.1 L* ABG pH 6.84 L* 6.83 L* 6.83 L* ABG Total CO2 9.7 L 9.5 L 9.7 L ABG O2 Saturation 80.3 L 81.7 L 82.4 L ABG O2 Content 9.9 L ABG Base Excess -24.6 L -24.8 L -26.0 L ABG Hemoglobin 8.7 L ABG Carboxyhemoglobin 0 L POC ABG HHb (Measured) 17.8 H ABG Methemoglobin 2.6 ABG O2 Capacity 12.1 L Bryce Test Yes Yes Yes ABG Potassium 8.5 H* 8.4 H* VBG pH VBG pCO2 VBG O2 Sat (Calc) VBG Potassium A-a O2 Difference 228.0 224.0 220.0 Hgb O2 Saturation 79.6 L Sodium 131.0 L 131.0 L Chloride 93.0 L 97.0 L Glucose 77 64 L Lactate 11.9 H* 10.6 H* Vent Mode A/c A/c Mechanical Rate 14 14 FiO2 50.0 50.0 50.0 Tidal Volume 500 500 Blood Gas Comments Lactate 11.9 Crit Value Called To concepcion Li rn, md Crit Value Called By [id number] Crit Value Read Back Y Y Y Blood Gas Notified Time 1424 1602 1613 Potassium Carbon Dioxide Anion Gap BUN Creatinine Est GFR ( Amer) Est GFR (Non-Af Amer) POC Glucose (mg/dL) Random Glucose Lactic Acid Calcium Phosphorus Magnesium Total Bilirubin AST ALT Alkaline Phosphatase Troponin I NT-Pro-B Natriuret Pep Total Protein Albumin Globulin Albumin/Globulin Ratio Arterial Blood Potassium 8.5 H* 8.4 H* Venous Blood Potassium Stool Occult Blood Alcohol, Quantitative Blood Type Blood Type Confirm Antibody Screen Crossmatch BBK History Checked 11/20/17 11/20/17 11/20/17 16:41 16:41 16:41 WBC 3.7 L D RBC 2.38 L Hgb 7.7 L D Hct 25.3 L MCV 106.4 H D MCH 32.5 H MCHC 30.6 L RDW 15.3 H Plt Count 109 L D MPV 11.8 H Neut % (Auto) 51.4 Lymph % (Auto) 43.3 H [place] % (Auto) 4.0 Eos % (Auto) 1.1 Baso % (Auto) 0.2 Neut # (Auto) 1.9 Lymph # (Auto) 1.6 [place] # (Auto) 0.1 Eos # (Auto) 0.0 Baso # (Auto) 0.0 PT INR APTT pCO2 pO2 HCO3 ABG pH ABG Total CO2 ABG O2 Saturation ABG O2 Content ABG Base Excess ABG Hemoglobin ABG Carboxyhemoglobin POC ABG HHb (Measured) ABG Methemoglobin ABG O2 Capacity Bryce Test ABG Potassium VBG pH VBG pCO2 VBG O2 Sat (Calc) VBG Potassium A-a O2 Difference Hgb O2 Saturation Sodium 136 Chloride 99 Glucose Lactate Vent Mode Mechanical Rate FiO2 Tidal Volume Blood Gas Comments Crit Value Called To Crit Value Called By Crit Value Read Back Blood Gas Notified Time Potassium 8.2 H* Carbon Dioxide 11 L* Anion Gap 34 H BUN 108 H* Creatinine 10.2 H* D Est GFR ( Amer) 5 Est GFR (Non-Af Amer) 4 POC Glucose (mg/dL) Random Glucose 64 L Lactic Acid 9.5 H* Calcium 4.5 L* D Phosphorus Magnesium 4.2 H Total Bilirubin 0.8 AST > 750 H D ALT 425 H D Alkaline Phosphatase 152 H D Troponin I NT-Pro-B Natriuret Pep Total Protein 4.5 L Albumin 2.1 L D Globulin 2.4 Albumin/Globulin Ratio 0.9 L Arterial Blood Potassium Venous Blood Potassium Stool Occult Blood Alcohol, Quantitative Blood Type Blood Type Confirm Antibody Screen Crossmatch BBK History Checked 11/20/17 16:41 WBC RBC Hgb Hct MCV MCH MCHC RDW Plt Count MPV Neut % (Auto) Lymph % (Auto) [place] % (Auto) Eos % (Auto) Baso % (Auto) Neut # (Auto) Lymph # (Auto) [place] # (Auto) Eos # (Auto) Baso # (Auto) PT INR APTT 43.0 H D pCO2 pO2 HCO3 ABG pH ABG Total CO2 ABG O2 Saturation ABG O2 Content ABG Base Excess ABG Hemoglobin ABG Carboxyhemoglobin POC ABG HHb (Measured) ABG Methemoglobin ABG O2 Capacity Bryce Test ABG Potassium VBG pH VBG pCO2 VBG O2 Sat (Calc) VBG Potassium A-a O2 Difference Hgb O2 Saturation Sodium Chloride Glucose Lactate Vent Mode Mechanical Rate FiO2 Tidal Volume Blood Gas Comments Crit Value Called To Crit Value Called By Crit Value Read Back Blood Gas Notified Time Potassium Carbon Dioxide Anion Gap BUN Creatinine Est GFR ( Amer) Est GFR (Non-Af Amer) POC Glucose (mg/dL) Random Glucose Lactic Acid Calcium Phosphorus Magnesium Total Bilirubin AST ALT Alkaline Phosphatase Troponin I NT-Pro-B Natriuret Pep Total Protein Albumin Globulin Albumin/Globulin Ratio Arterial Blood Potassium Venous Blood Potassium Stool Occult Blood Alcohol, Quantitative Blood Type Blood Type Confirm Antibody Screen Crossmatch BBK History Checked Assessment & Plan - Assessment and Plan (Free Text) Plan: BHARATI .. PRE RENAL AZOTEMIA Vs ATN SEVERE MET ACIDOSIS SEVERE HYPERKALEMIA ABDO PAIN R/O PERFORATION MMP VDRF .. WAS INTUBATED AT HOME BY EMS P : D/W WASHROOM OPERATOR .. DR CALDERON C/O IVF RESSUSETATION IVAB RESPIRATORY MANAGEMENT GIVEN TEMPORISING MEASURES FOR HYPERKALEMIA BY ER ATTENDING CASE D/W ER ATTENDING AT LENGTH ICU ADMISSION AND VERY CLOSE MONITORING VERY POOR PROGNOSIS - Date & Time Date: 11/20/17 Time: 12:00
[2017-11-20] MEDS ORDERED: Thiamine 100 mg/ml Inj IV SCH (21:00)
[2017-11-20] MEDS ORDERED: Hydrocortisone- 50 MG in Sodium Chloride 0.9% 100 ML IV SCH (22:00)
--- NOTE | 2017-11-21 08:35 | CARD ---
APPROVED REPORT EKG Measurement Heart [id number] [id number] <Conclusion> Normal sinus rhythm Normal ECG
--- NOTE | 2017-11-22 03:52 | OP ---
PROCEDURE DATE: 11/20/2017 A 57 years old female. PREOPERATIVE DIAGNOSES: Bowel ischemia and gastrointestinal bleed. POSTOPERATIVE DIAGNOSES: Bowel ischemia and gastrointestinal bleed. SURGERY: Exploratory laparotomy. SURGEON: Gurpreet Almonte MD ANESTHESIA: General endotracheal. ESTIMATED BLOOD LOSS: 5 mL. INTRAVENOUS FLUIDS: 1 L of Ringer's lactate. DISPOSITION: Unstable, intubated to the ICU. CLINICAL INFORMATION: Ms. Darren Santiago is a 57-year-old female who came to the [facility] with acute onset of severe abdominal pain progressively worsening, which started earlier in the day. The patient's workup had evidence of bowel ischemia, possible . She was hemodynamically stable and started on Levophed drip. Because of her ongoing acidosis and multiple organ failure, I was concerned about bowel ischemia, necrosis as well as GI bleed, and the patient was after being resuscitated with 5 L of IV fluids and was determined to be as best resuscitated and was taken to the OR because I was concerned about the ongoing intra-abdominal catastrophe. It was determined that there was not much time left to wait for the patient to be optimized, I discussed with the patient as well as her accompanying [id number] about the significantly grave risks of undertaking with exploration including intraoperative and immediate postoperative as well as significant short-term and long-term morbidity. Apparently, both were determined to do the maximum possible to address the issues. Therefore the patient after being appropriately consented and the risks were explained to her and her accompanying family member, she was taken to the OR for exploration. After the patient was intubated, the abdomen was prepped and draped in the usual sterile fashion. Using a #15 blade after infiltrating the skin with local anesthetic comprised of 0.25% of Marcaine in the supraumbilical midline, incision was performed and was brought down to the linea alba using a Bovie electrocautery. This before being able to fully enter the abdominal cavity and the serology notified that the patient was asystolic and pulseless, the exploratory laparotomy was abandoned and a code was called and CPR was initiated initially by me and later on by other members of the code team. After 10 minutes of chest compressions and aggressive CPR protocol regimen, the patient's blood pressure and heart rate were re-established, and she was taken out of the OR and to the ICU for further treatment. The patient's [id number] was notified of the situation in the OR as well as code and the grave prognosis. Gurpreet Almonte MD
== END 2017-11-20 17:55 | DRG 208 ==
LOC: H.ER 08:45 → H.ERHOLD 11:11 → H.ICU/CCU 13:30
PROC: 5A1935Z Respiratory Ventilation, Less than 24 Consecutive Hours (ICD-10-PCS; 2017-11-20)
PROC: 04HK33Z Insertion of Infusion Device into Right Femoral Artery, Percutaneous Approach (ICD-10-PCS; 2017-11-20)
PROC: 5A12012 Performance of Cardiac Output, Single, Manual (ICD-10-PCS; 2017-11-20)
PROC: 0HJPXZZ Inspection of Skin, External Approach (ICD-10-PCS; 2017-11-20)
PROC: 06HN33Z Insertion of Infusion Device into Left Femoral Vein, Percutaneous Approach (ICD-10-PCS; principal; 2017-11-20 16:00)
DX: J96.01 Acute respiratory failure with hypoxia (principal); K63.1 Perforation of intestine (nontraumatic); N17.9 Acute kidney failure, unspecified; E87.2 Acidosis; K92.2 Gastrointestinal hemorrhage, unspecified; K56.609 Unspecified intestinal obstruction, unspecified as to partial versus complete obstruction; K55.9 Vascular disorder of intestine, unspecified; Z99.11 Dependence on respirator [ventilator] status; J43.9 Emphysema, unspecified; I10 Essential (primary) hypertension; E78.5 Hyperlipidemia, unspecified; G89.29 Other chronic pain; I95.9 Hypotension, unspecified; E87.5 Hyperkalemia; Z88.2 Allergy status to sulfonamides; Z78.1 Physical restraint status; I46.9 Cardiac arrest, cause unspecified; F41.9 Anxiety disorder, unspecified; E78.00 Pure hypercholesterolemia, unspecified; G43.909 Migraine, unspecified, not intractable, without status migrainosus; Z72.0 Tobacco use; E86.0 Dehydration